=== PATIENT | female | born 1985 | race Caucasian/White ===

== ENCOUNTER → 2019-03-09 16:51 | Outpatient (CLI) | payer OTHER, SELFPAY ==
--- NOTE | 2019-03-16 15:50 | PM.PFT.1 ---
Pulmonary Function Test Referral & Results Date Patient Seen: 03/09/19 Requesting provider: Padma Domingo Results: The spirometry demonstrates an FVC of 3.49 L which is 102% of predicted. The FEV1 was measured at 1.90 L which is 65% of predicted. The FEV1/FVC ratio was 50 for which is 64% of predicted. Following the administration of bronchodilator there was a 64% improvement in FEV1 and a 250% improvement in FEF 25-75%. Lung volumes show an SVC of 3.77 L which is 113% of predicted. The diffusing capacity was measured at 29.89 which is 147% of predicted. The maximum voluntary ventilation was severely reduced Interpretation: This study demonstrates moderate obstructive lung disease with evidence of significant benefit following bronchodilator. There is also evidence of mild hyperinflation and an increase in diffusing capacity suggesting a diagnosis of asthma Given the severe reduction in maximum voluntary ventilation the question of neuromuscular disease is also present Clinical correlation suggested
== END ==
PROVIDERS: PCP Nurse Practitioner Family; Visit Provider Nurse Practitioner Family
DX: J45.909 Unspecified asthma, uncomplicated (principal)
CPT/HCPCS: 94060; 94729

== ENCOUNTER 2019-06-14 10:26 | Day surgery (SDC) | payer OTHER, SELFPAY ==
[2019-06-07 07:50] VITALS: BMI 24.0
[2019-06-14] VITALS (18 sets, daily range): BP systolic 79–137; BP diastolic 39–76; PULSE 63–90; RESP 14–20; TEMP 36.4–36.9; O2SAT 81–100; BMI 23.7
--- NOTE | 2019-06-14 | PATH_ITS ---
[facility] Accession Number: [id number] . 01 Material submitted: . PART A: peritoneum - PERITONEAL BIOPSY PART B: ovary - LEFT OVARIAN BIOPSY PART C: uterus - UTERUS . 02 Diagnosis: A. Peritoneal Biopsy: Portions of fibromuscular and fibroconnective tissue with no significant histomorphologic abnormality. There is no evidence of involvement by endometriosis. . B. Left Ovarian Biopsy: Portions of ovarian tissue with a benign corpus luteum cyst lining; negative for atypia or malignancy. . C. Uterus, Laparoscopic Supracervical Hysterectomy (Weight 32 grams): Weakly proliferative endometrium; negative for glandular hyperplasia, cytologic atypia, and malignancy. Myometrium with no significant histomorphologic abnormality; negative for atypia or malignancy. Uterine serosa with no significant histomorphologic abnormality. [facility] 06/18/2019 1606 Local . 02 Electronically signed: . Taisha Rawls MD, Pathologist NPI- [id number] . 01 Gross description: . A. Received in a formalin-filled container, labeled peritoneal biopsy, and consists of a 1.6 x 0.6 x 0.4 cm, pink-colunga, smooth to ragged, unoriented soft tissue. The presumed base is inked orange and sectioning reveals colunga, grossly unremarkable cut surfaces. Specimen is sectioned and entirely submitted in A1. B. Received in a formalin-filled container, labeled left ovarian biopsy, and consists of a 2.0 x 1.4 x 1.0 cm, pink-colunga, hemorrhagic, smooth to ragged, unoriented soft tissue grossly consistent with possible fragment of ovary which has a weight of less than 2.0 grams. The presumed serosa is inked blue and the specimen is sectioned to reveal pink-colunga grossly unremarkable cut surfaces. Specimen is sectioned and entirely submitted in B1-B2. C. Received in a formalin-filled container, labeled uterus, and consists of a 5.5 cm (cornu to cornu) by 4.3 cm (superior to inferior) by 4.0 cm (anterior to posterior) uterus devoid of bilateral adnexa and devoid of a cervix. The uterus has a weight of 32.0 grams and the serosa is colunga, smooth and there are multiple transmural defects present up to 4.0 cm, which is probable surgical artifact. Orientation is not possible and sectioning of the uterus reveals unremarkable cut surfaces. One of the serosal uterine defects grossly appears to be extending into the endomyometrium and into the uterine cavity. The uninvolved endometrium is pink-colunga, scant, up to less than 0.1 cm in thickness. The myometrium is colunga, trabeculated up to 2.3 cm in thickness. Bog Cutter sections are submitted as follows: C1 - aforementioned uterine serosal defect extending into endomyometrium; C2-C3 - uterus, endomyometrium (C3 including serosa); C4 - additional section of uterus including scant possible endometrium. ([id number]) /MRV 06/15/2019 [facility]5 Local . 02 Pathologist provided ICD-10: R10.2 . 02 CPT . 777609, [id number], [id number] Performed at: 01 [facility] [address] [id number] MD Yovany Mathew MD Phone: [phone] Performed at: 02 [facility] [address], [place] [id number] MD Asmita Lujan MD Phone: [phone]
[2019-06-14] MEDS: LACTATED RINGERS 1,000 ML 100 ML IV ×3 (11:43→18:20)
--- NOTE | 2019-06-14 13:13 | PM.PREOP ---
Pre-operative Note Interval Note History & Physical reviewed/Exam performed by Physician: Yes Changes to H&P: No
[2019-06-14] MEDS: CEFAZOLIN 2 GM/100 ML FROZ.PIGGY IV (14:12)
--- NOTE | 2019-06-14 14:36 | SUR.OPER ---
Lithotomy on padded OR bed, head on pillow, arms padded and secured at sides. Legs secured in padded yellow fins stirrups.
[2019-06-14] MEDS: BUPIVACAINE 0.5% W/ EPI (PF) VIAL 30 ML INJ (14:56)
[2019-06-14] MEDS: ROPIVACAINE 0.2% PF 2 MG/ML 10ML AMP 20 ML INJ (15:55)
--- NOTE | 2019-06-14 16:25 | PM.OP.1 ---
Operative Date/Time/Diagnoses Date of procedure: 06/14/19 Time of procedure: 16:25 Pre-op diagnosis: Dysmenorrhea, dyspareunia, menorrhagia Post-op diagnosis: same Procedure & Clinicians Procedure: Operative laparoscopy with biopsies pelvic peritoneum, biopsy left ovary, supracervical hysterectomy. Same procedure as scheduled: No (Scheduled as possible hysterectomy) Indications: Patient with 2 years of dysmenorrhea, dyspareunia, menorrhagia Surgeon: Helen Oleary Click Yes if Unassisted: Yes Anesthesia Type: General Operative Notes Findings: Possible peritoneal endometriosis in the posterior cul-de-sac. Left ovarian surface mass, endometrial scarring, pelvic varicosities, subserosal fibroid Closure Type: primary Specimen(s): other (Perineal biopsy, left ovarian biopsy, uterus above the level of the cervix.) Applied: catheter (Zepeda) Estimated Blood Loss (mL): 25 Blood products transfused: none Procedure in detail: Patient is brought to the operating room where she underwent general anesthesia and placed in [facility] stirps. She was prepped and draped in the usual sterile fashion. A check list was reviewed with the staff in the room prior to beginning of the case. Patient had pulsatile stockings in place and functional. 2 g of Ancef were in prior to beginning of the case.. A Zepeda catheter was placed. A single-tooth tenaculum was placed on the anterior lip of the cervix and the cervix dilated to a #6 Hegar dilator with some difficulty. The uterine manipulator was placed through the cervix into the uterus with the balloon inflated with 3 mL of air. The area of the umbilical incision and the 5 mm right and left lower quadrant incisions were injected with Marcaine. An incision was made with scalpel. Incision was carried down the fascial layer which was incised transversely and held with 0 Vicryl suture. The perineum was entered bluntly and the assign cannulas placed in the abdomen and the abdomen insufflated with CO2. There did not appear to be any damage is placement of the trocar. The right and left lower quadrant incisions were made with the scalpel and the trochars placed without damage to internal structures. Biopsy was taken of the area of possible endometriosis on the left broad ligament being careful to stay away from the left ureter. Biopsy was taken of a mass on the surface of the left ovary and cystic structure drained. At that time it was noted that with motion of the Zumi uterine manipulator that the Zumi perforated through the uterus wall. Due to the bleeding and size of the defect with the probability of endometriosis decision was made to proceed with a supracervical hysterectomy. The PK forceps were used to cauterize the utero-ovarian ligaments and the round ligaments on both sides. Sequential bites were taken down the broad ligaments. The uterine arteries were cauterized. An incision was made above the level bladder pushing the bladder away from the cervix. The CED loop was placed around the uterus and the uterus was amputated above the level of the bladder. Bleeding was controlled with the PK forceps. The PK forceps were used to cauterize in the endocervical canal. A supracervical incision was made and an 11 mm port placed. A 15 mm Endo Catch bag was placed in the abdomen. The uterus, tubes and ovaries were placed in the bag and brought up through the suprapubic port site. The Alexandr O was placed. The uterus was hand morselized. The abdomen was reinsufflated and adequate hemostasis was noted. The trochars were removed and the CO2 allowed escape from the abdomen. The fascia layer of the suprapubic site was repaired with 0 Vicryl suture. Skin was closed with 4-0 Monocryl suture at the suprapubic site and the other 3 sites. The patient went to recovery room in good condition. Counts of instruments and sponges were correct. Complications: other (Perforation of the uterus with Zumi uterine manipulator) Post-operative Condition: stable Disposition: Acute Care Plan for aftercare: Monitor overnight. Home in a.m. when stable.
[2019-06-14] MEDS: ALBUTEROL 2.5 MG/3 ML NEB (ADULT) INH (16:54)
[2019-06-14] MEDS: fentaNYL 100 MCG/2 ML INJ IV (16:59)
[2019-06-14] MEDS: LACTATED RINGERS 1,000 ML 42 ML IV (17:00)
--- NOTE | 2019-06-14 17:28 | SUR.PHASEI ---
Pt came in with airway and needing chin lift for 6 minutes, air way out,some wheezing noted, dr concepcion called, albuterol ordered and given wheezing resolved. medicated for pain and pt comfortable. report attempted, rn not available. awaiting call back.
[2019-06-14] MEDS: KETOROLAC 30 MG/ML VIAL IV (18:15)
[2019-06-14] MEDS: HYDROCODONE/ACET 5/325 TABLET 2 TAB PO ×2 (19:29→22:59)
[2019-06-14] MEDS: DOCUSATE 250 MG CAPSULE PO (20:42)
[2019-06-14] MEDS: ALBUTEROL HFA 60 PUFF/8 GM INH INH (22:00)
[2019-06-15] MEDS: KETOROLAC 30 MG/ML VIAL IV ×2 (02:33→08:31)
--- NOTE | 2019-06-15 02:48 | PC.NURSE ---
Addendum entered by Malissa Sanders R.N. 06/15/19 02:50: Now stating pain is 5/10 and requesting pain medication; medicated with Toradol. Original Note: 0100 Patient is alert and oriented. Breath sounds CTA with RA sat of 97%. HRR. Denies nausea. BT hypoactive and has not passed flatus as yet. Does have abdominal pain/tenderness from incisions and current severity is 5/10; had Vicodin at 2300 and states pain is tolerable. Indwelling catheter is patent; urine is pale, light yellow. Peripad without drainage. Assisted to turn onto side with pillow at back and between legs. Wearing bilateral calf SCD's. Reports 1 fall in past 3 months so fall risk score is high and bed alarm is activated.
[2019-06-15 04:09] VITALS: BP 99/54; PULSE 62; RESP 18; TEMP 37; O2SAT 98
[2019-06-15] MEDS: HYDROCODONE/ACET 5/325 TABLET 2 TAB PO ×3 (04:09→12:22)
[2019-06-15 05:37] LABS: Add Manual Diff / Slide Review NO; Basophils Absolute Auto 0 /uL (0-100); Basophils Percent Auto 0.1 % (0-2); Eosinophils Absolute Auto 0 /uL (0-450); Hematocrit 35.9 % (36-46); Hemoglobin 12.3 g/dL (12.0-16.0); Lymphocytes Absolute Auto 1200 /uL (1100-4500); Lymphocytes Percent Auto 12.5 % (25-40); Mean Corpuscular HGB Conc 34.2 % (30-36); Mean Corpuscular Hemoglobin 29.4 PG (26-34); Monocytes Absolute Auto 500 /uL (0-900); Monocytes Percent Auto 5.3 % (3-14); Neutrophils Absolute Auto 8100 /uL (1500-7000); Neutrophils Percent Auto 82.1 % (50-75); Platelet Count 201 X10^3/uL (150-400); Red Blood Cell Count 4.17 X10^6/uL (4.0-5.2); Red Cell Distribution Width 13.3 % (11.6-14.8); White Blood Cell Count 9.9 X10^3/uL (4.5-11.0)
--- NOTE | 2019-06-15 07:32 | P.DS_ITS ---
History of Present Illness History of Present Illness Date Patient Seen: 06/15/19 Time Patient Seen: 07:32 Chief complaint: [id number] Narrative: Patient underwent diagnostic laparoscopy and was converted a laparoscopic supracervical hysterectomy. She is not having any nausea. Her pain is tolerable. No vaginal bleeding. Discharge Providers Provider Discharge Date: 06/15/19 Primary care physician: ANTHONY Brooks Consults: 06/14/19 18:03 Consult to Dietitian, Adult Routine Comment: Reason For Exam: recent change in appetite with wt loss Discharge provider: Helen Oleary MD Summary Hospital Course Discharge Diagnosis: Dysmenorrhea, dyspareunia, menorrhagia. Pelvic varicosities, possible endometriosis, uterine fibroids Hospital Course: Patient underwent diagnostic laparoscopy and was converted a laparoscopic supracervical hysterectomy. She is not having any nausea. Her pain is tolerable. No vaginal bleeding. Patient's vital signs remained stable. Her blood count is stable. Status at Discharge Cognitive/behavioral status at discharge: oriented Functional status at discharge: independent ambulation Overall status at discharge: patient is progressing back to baseline Time Spent with Patient Time spent: Less than 30 minutes Exam Vital Signs (past 8 hours): - 06/14/19 23:55 06/15/19 04:09 Temperature 98.3 F 98.6 F Pulse Rate 63 62 Respiratory Rate 18 18 Blood Pressure 103/63 99/54 L Pulse Oximetry 97 98 Oxygen Delivery Method Room Air Oxygen Flow Rate 0 Narrative Exam Narrative: Abdomen is soft with minimal tenderness. Dressings are dry. No vaginal bleeding. Extremities without edema and nontender. Objective Labs Result Diagrams: 06/15/19 05:15 Labs: Laboratory Results - last 24 hr 06/15/19 05:15 WBC 9.9 RBC 4.17 Hgb 12.3 Hct 35.9 L MCV 86.0 MCH 29.4 MCHC 34.2 RDW 13.3 Plt Count 201 Neut % (Auto) 82.1 H Lymph % (Auto) 12.5 L [place] % (Auto) 5.3 Eos % (Auto) 0.0 L Baso % (Auto) 0.1 Neut # (Auto) 8100 H Lymph # (Auto) 1200 [place] # (Auto) 500 Eos # (Auto) 0 Baso # (Auto) 0 Discharge Plan Discharge Plan Patient Disposition: Home Discharge Med Rec/Prescriptions Prescriptions: Continued oxycodone-acetaminophen 5-325 mg tablet 2 tab PO Q4-6H PRN (Reason: pain) Qty: 30 RF: 0 albuterol sulfate [ProAir HFA] 90 mcg/actuation HFA aerosol inhaler 2 puff INHALATION Q4-6H PRN (Reason: Shortness Of Breath) RF: 0 Flovent HFA 110 mcg/actuation HFA aerosol inhaler 2 puff INHALATION BID RF: 0 loratadine [Claritin] 10 mg tablet 10 mg PO DAILY RF: 0 montelukast [Singulair] 10 mg tablet 10 mg PO QPM Qty: 60 RF: 0 Follow up/Referrals: Helen Oleary MD [Physician] - 2 Weeks Discharge Orders: Discharge (Order); Ordered 06/15/19 Ordered By: Helen Oleary Provider Discharge Instructions Diet: Regular Activity: No heavy activity for 1 week Skin/Wound/Dressing Care Report to your healthcare provider any signs of infection, such as:: chills, fever, increased pain and unusual redness Dressing: Leave in is on for 24 hours then remove can get Steri-Strips wet just pat dry Visit Report/Discharge Packet Instructions: DI for Laparoscopy Stand Alone Forms: Surgery Discharge Discharge Data Primary Care Provider: Padma Domingo Attending Provider: Hleen Oleary Quality VTE Deep Vein Thrombosis/Pulmonary Embolism Present on Admission: No
[2019-06-15] MEDS: ALBUTEROL HFA 60 PUFF/8 GM INH INH (08:30)
[2019-06-15] MEDS: SODIUM CHLORIDE 0.9% FLUSH 10 ML IV (08:31)
[2019-06-15] MEDS: DOCUSATE 250 MG CAPSULE PO (08:34)
--- NOTE | 2019-06-15 08:34 | CM.SWNOTE ---
Initial/discharge assessment complete. Found patient sitting up in chair eating breakfast. A&O x 4 and in good spirits. She declined that she had barriers to safe discharge or any needs at home that I could assist her with at this time. Left CM name and number on white board in room since she didn't anticipate leaving for home until this afternoon. She has two active toddlers and she was hoping they would be worn out by this afternoon so less likely to cause additional discomfort with their roughness.
[2019-06-15 10:00] VITALS: BP 101/61; PULSE 60; RESP 16; TEMP 36.9; O2SAT 97
--- NOTE | 2019-06-15 10:08 | PC.NURSE ---
Addendum entered by Beto Lozano R.N. 06/15/19 13:28: PATIENT AMBULATED IN [place] FOR A SHORT DISTANCE. TOLERATED WELL. SPOUSE PRESENT FOR DISCHARGE TEACHING AND PAPERWORK. PATIENT STATES SHE HAS ALREADY FILLED HER OXYCODONE SCRIPT PRE-OP. TEACHING PROVIDED ABOUT PREVENTING CONSTIPATION. PATIENT CONFIRMS UNDERSTANDING OF ALL S/SX'S WARRANTING CALL TO SURGEON'S OFFICE. SHE STATES SHE ALREADY HAS A F/U APPT MADE FOR THE DAY AFTER THANKSGIVING. Original Note: : BHUPENDRA DC'D AT 0815. VOIDED 300CC'S AT 0940. BLADDER SCANNED AT 1005 W/ PVR 85CC'S. ACTIVITY: PATIENT SAT UP IN RECLINER FOR BREAKFAST. TRANSIENT LIGHTHEADEDNESS. 1P SBA UP TO BR TO VOID, TOLERATED WELL. PREFERS TO NAP AT THIS TIME. AGREES TO AMBULATE IN HALLS PRIOR TO LUNCH, AND THEN SHE EXPECTS HER TO ARRIVE TO TAKE HER HOME.
[2019-06-15 11:23] VITALS: BMI 23.7
--- NOTE | 2019-06-15 11:29 | DIET.PN ---
Dietary Progress Note Assessment: 33y F admitted for recovery s/p lap hysterectomy referred to nutrition for change in appetite and weight loss. Pt reports lowered appetite and wt loss associated c px r/t endometriosis, hoping this resolves s/p procedure. Pt tends towards clean eating c reduced processed foods, red meat and dairy. Has two toddlers and supportive at home. HT: 154.9cm WT: 56.9kg BMI: 23.7 MNA:10 at risk Dionicio:21 Nutrition Diagnosis: Increased nutrient needs (PRO, zinc, Vits A and C) r/t healing wounds aeb pt is s/p lap hysterectomy, prefers no red meat or dairy. Interventions: Discussed increased nutrient needs for healing ensuring PRO c each meal, making large batch of soup containing turkey/chicken/beans, carrots/squash/sweet potato, tomato/hawkins pepper and eating for one meal per day for next 2w. Diet Order: General EER: 1800kcal, 70g PRO (1.2g/kg healing wounds), 1.7L fluids Monitoring/Evaluations: pt is d/c this afternoon
[2019-06-15 12:00] VITALS: BP 99/59; PULSE 65; RESP 16; TEMP 36.8; O2SAT 98
== END 2019-06-15 13:41 | disposition home or self-care (01) ==
LOC: OR 16:35 → AC 16:35
PROVIDERS: PCP Nurse Practitioner Family; Visit Provider Specialist
PROC: (CPT 49320; principal; 2019-06-14 13:45)
DX: D25.2 Subserosal leiomyoma of uterus (principal); N83.12 Corpus luteum cyst of left ovary
CPT/HCPCS: 58541; 36415; 85025; 94640; J0690; J1100; J1885; J2405; J2704; J2795; J3010; J7613

== ENCOUNTER 2019-06-27 10:19 | Emergency (ER) | payer OTHER, SELFPAY ==
[2019-06-14 17:36] VITALS: BMI 23.7
[2019-06-27 10:20] VITALS: BP 104/67; PULSE 60; RESP 18; TEMP 36.9; O2SAT 96
--- NOTE | 2019-06-27 10:40 | DI.RAD.S_ITS ---
PROCEDURE: XR CHEST 2V INDICATIONS: cough fever TECHNIQUE: 2 views of the chest were acquired. COMPARISON: [facility], CT, CT ABDOMEN PELVIS W CON, 06/27/2019, 11:03. FINDINGS: Surgical changes and devices: None. Lungs and pleura: Minimal appearance of streaky opacity is present within the right base. No pleural effusions or pneumothorax. Mediastinum: Mediastinal contours are normal. Heart size is normal. Bones and chest wall: No suspicious bony abnormalities. Soft tissues appear unremarkable. IMPRESSION: Minimal streaky right basilar opacity. This could represent atelectasis versus developing pneumonia. Dictated by: Kelli Mcdonald M.D. on 06/27/2019 at 11:48 Approved by: Kelli Mcdonald M.D. on 06/27/2019 at 12:08
--- NOTE | 2019-06-27 10:40 | DI.CT.S_ITS ---
PROCEDURE: CT ABDOMEN PELVIS W CON INDICATIONS: pain s/p hysterectomy TECHNIQUE: After the administration of intravenous contrast, 5 mm thick sections acquired from the diaphragm to the symphysis. 5 mm coronal and sagittal reformats were acquired. For radiation dose reduction, the following was used: automated exposure control, adjustment of mA and/or kV according to patient size. COMPARISON: None. FINDINGS: Image quality: Excellent. ABDOMEN: Lung bases: Small focal alveolar opacity in the posterior right costophrenic sulcus. No effusions. Heart size is normal. Solid organs: Liver is normal in size and enhancement. Gallbladder is normal. Biliary system is non dilated. Pancreas enhances normally. Spleen is normal in size and enhancement. No adrenal nodules. Kidneys demonstrate normal size and enhancement, without hydronephrosis. Peritoneum and bowel: Bowel loops demonstrate normal wall thickness and caliber. No free fluid or air. Nodes and vessels: No retroperitoneal or mesenteric adenopathy by size criteria. Aorta and inferior vena cava are normal in size. Miscellaneous: No ventral hernias. PELVIS: Genitourinary: The uterus is surgically absent. There is probably a hyperenhancing residual cervix. There is a mild amount of amorphous surrounding low density, probably edema and a small amount of fluid layers posteriorly in the pelvis. The vaginal canal is decompressed except for small amount of air at the apex. No discrete drainable fluid collection and no extraluminal gas. The right ovary contains a small dominant follicle. Left ovarian tissue is normal. Miscellaneous: No inguinal hernias or adenopathy. A small rounded/tubular focus of unencapsulated, nonenhancing subcutaneous fluid subjacent to a low midline pelvic incision is present. The anterior abdominal wall appears intact. Bones: No suspicious bony lesions. No vertebral body compression fractures. IMPRESSION: 1. Edema and small amount of unencapsulated fluid adjacent to the residual cervix post hysterectomy. No discrete drainable abscess. 2. Small subcutaneous seroma/hematoma underlying the surgical skin incision. No adjacent changes to suspect abscess. Dictated by: Laura Rousseau M.D. on 06/27/2019 at 11:33 Approved by: Laura Rousseau M.D. on 06/27/2019 at 11:41
--- NOTE | 2019-06-27 10:49 | ED_ITS ---
HPI - SOB/Dyspnea General Chief Complaint: Shortness of Breath/Dyspnea Stated Complaint: surgery on ,bloody discharge,cough up blood Time Seen by Provider: 06/27/19 10:32 Source: patient Mode of arrival: Ambulatory Limitations: no limitations History of Present Illness HPI Narrative: The patient is a 33-year-old female with history of at presents with variety of complaints. She had an outpatient hysterectomy on 06/14/2019. She says shortly after that her family all got gastroenteritis she had vomiting and diarrhea. She says that has subsided she now has a cough some occasional hemoptysis. She has some shortness of breath but not now. She also says that she has some vaginal bloody mucousy discharge, she does not have significant vaginal bleeding she does have some mild abdominal pain as well she is worried that her his sutures something may have happened. She has no redness or pus around her incision sites. MD Complaint: shortness of breath Onset (ago): day(s) Related Data Home Medications Medication Instructions Recorded Confirmed fluticasone propionate 110 2 puff INHALATION BID 02/22/19 06/14/19 mcg/actuation HFA aerosol inhaler loratadine 10 mg tablet 10 mg PO DAILY 02/22/19 06/14/19 Previous Rx's Medication Instructions Recorded montelukast 10 mg tablet 10 mg PO QPM #60 tab 02/22/19 oxycodone-acetaminophen 5 mg-325 1 tab PO Q4-6H PRN #10 tab 06/18/19 mg tablet albuterol sulfate 90 mcg/actuation 2 puff INHALATION Q4-6H PRN #8 gram 06/22/19 aerosol inhaler doxycycline hyclate 100 mg PO BID #14 cap 06/27/19 ondansetron HCl [Zofran] 4 mg PO Q8H PRN #10 tab 06/27/19 Allergies Allergy/AdvReac Type Severity Reaction Status Date / Time No Known Drug Allergies Allergy Verified 06/11/19 09:01 Review of Systems Review of Systems ROS Unobtainable: All systems reviewed & are unremarkable except as noted in HPI and below Constitutional Constitutional: Denies chills, Denies fever(s), Denies lethargy and Denies weakness Eyes Eyes: Denies change in vision, Denies eye discharge, Denies irritation and Denies loss of vision Cardiovascular Cardiovascular: Denies chest pain, Denies irregular heart rhythm, Denies lightheadedness, Denies palpitations, Reports dyspnea, Reports dyspnea on exertion and Denies orthopnea Respiratory Respiratory: Reports cough, Reports hemoptysis, Denies excessive phlegm production, Denies pain on inspiration, Reports dyspnea and Reports dyspnea on exertion Gastrointestinal Gastrointestinal: Reports as per HPI and Denies vomiting Musculoskeletal Musculoskeletal: Denies back pain, Denies muscle weakness, Denies numbness and Denies tingling Integumentary/Breasts Skin/Breast: Denies pruritus, Denies erythema, Denies rash and Denies wounds Neurologic Neurologic: Denies loss of vision, Denies numbness, Denies tingling and Denies weakness Endocrine Endocrine: Denies palpitations Patient History Medical History Acne (Chronic ~1989) ADHD (Chronic ~1996) Allergies (Chronic ~2010) Anxiety (Chronic ~2012) Asthma (Chronic ~2016) Chronic back pain (Chronic ~2016) Depression (Chronic ~1997) Fibromyalgia (Chronic ~2017) Painful menstrual periods (Chronic ~2016) complication (Acute ~11/2016) Vision disorder (Chronic) Surgical History Anesthesia (Resolved) H/O: hysterectomy (Acute 06/14/19) History of dilatation and curettage (Resolved ~2016) History of surgery (Resolved ~2016) Family History Mother Diabetes mellitus Hypertension Hyperlipidemia Stroke Arthritis Social History household members: spouse and children Smoking Status: Former smoker second hand exposure: No alcohol intake: never substance use type: does not use alcohol intake frequency: 0-2 drinks per day Substance Use Type: marijuana Exam Initial Vital Signs Initial Vital Signs: Vital Signs Temperature 98.4 F 06/27/19 10:20 Pulse Rate 60 06/27/19 10:20 Respiratory Rate 18 06/27/19 10:20 Blood Pressure 104/67 06/27/19 10:20 Pulse Oximetry 96 06/27/19 10:20 GENERAL: Well-appearing, well-nourished and in no acute distress. HEENT: Head atraumatic,EOMI, pupils reactive, face symmetric CARDIOVASCULAR: Regular rate and rhythm without murmurs, rubs or gallops. RESPIRATORY: Breath sounds equal bilaterally, no wheezes rales or rhonchi. Speaks in full sentences no difficulty ABDOMEN: Soft, minimal tenderness incision sites clean and dry Steri-Strips in place no erythema no significant discharge : No CVA tenderness EXTREMITIES: Normal range of motion, no clubbing or edema. Neurovascularly inta ct NEUROLOGICAL: Alert and oriented x4.Normal gait and speech. SKIN: Warm, dry, no laceration, no petechiae, no rashes or lesions. Scores PERC Score Age greater than or equal to 50 years: No Heart rate greater than or equal to 100 bpm: No Room Air O2 Sat less than 95%: No Unilateral leg swelling: No Recent trauma or surgery: No Hemoptysis: Yes Prior PE or DVT: No Hormone Use: No Total PERC Score: 1 Wells' Criteria for PE Clinical signs and symptoms of DVT: No PE is #1 Dx or equally likely: No Heart rate > 100: No Immobilization at least 3 days or surg in previous 4 weeks: No History of PE or DVT: No Hemoptysis: No Malignancy w/Treatment within 6 months or palliative: No Wells' PE Score total: 0 Course Orders Ordered: ED Orders 06/27/19 10:40 CT abdomen pelvis w con Stat XR chest 2V Stat 06/27/19 10:57 Complete Blood Count AUTO DIFF Stat Comprehensive Metabolic Panel Stat Lipase Stat 06/27/19 11:25 Urine Microscopic Stat Discontinued Medications Albuterol/Ipratropium (Duoneb) 3 ml INH NOW ONE Stop: 06/27/19 12:23 Last Admin: 06/27/19 13:06 Dose: 3 ml Documented by: LALO Sodium Chloride (Normal Saline 0.9%) 1,000 mls @ 1,000 mls/hr IV CONT BELÉN Last Infusion: 06/27/19 12:43 Dose: 0 mls/hr Documented by: Admin: 06/27/19 11:05 Dose: 1,000 mls/hr Documented by: MICAELA Ketorolac Tromethamine (Toradol) 30 mg IV NOW ONE Stop: 06/27/19 10:42 Last Admin: 06/27/19 11:06 Dose: 30 mg Documented by: MICAELA Ondansetron HCl (Zofran) 4 mg IV NOW ONE Stop: 06/27/19 11:17 Last Admin: 06/27/19 11:19 Dose: 4 mg Documented by: MICAELA Vital Signs Vital signs: Vital Signs - 8 hr 06/27/19 13:02 06/27/19 13:37 Pulse Rate 80 78 Respiratory Rate 20 18 Blood Pressure 108/69 Pulse Oximetry 98 MDM - SOB/Dyspnea Lab Data Attestation: I reviewed the patient's lab results. Result diagrams: 06/27/19 10:57 06/27/19 10:57 Labs: Lab Results 06/27/19 06/27/19 06/27/19 Range/Units 10:57 10:57 11:25 WBC 4.6 (4.5-11.0) X10^3/uL RBC 4.43 (4.0-5.2) X10^6/uL Hgb 13.2 (12.0-16.0) g/dL Hct 37.8 (36-46) % MCV 85.3 (80-100) fL MCH 29.8 (26-34) PG MCHC 34.9 (30-36) % RDW 13.6 (11.6-14.8) % Plt Count 238 (150-400) X10^3/uL Neut % (Auto) 51.0 (50-75) % Lymph % (Auto) 39.2 (25-40) % Carson % (Auto) 7.0 (3-14) % Eos % (Auto) 2.3 (2-4) % Baso % (Auto) 0.5 (0-2) % Neut # (Auto) 2400 (4622-8408) /uL Lymph # (Auto) 1800 (4197-8067) /uL Carson # (Auto) 300 (0-900) /uL Eos # (Auto) 100 (0-450) /uL Baso # (Auto) 0 (0-100) /uL Sodium 139 (137-145) mmol/L Potassium 3.4 (3.4-5.1) mmol/L Chloride 104 (98-107) mmol/L Carbon Dioxide 27 (22-32) mmol/L BUN 3 L (7-17) mg/dL Creatinine 0.40 L (0.52-1.04) mg/dL Estimated GFR > 60.0 (>60) mL/min BUN/Creatinine Ratio 7.5 (6-22) Glucose 110 H (70-100) mg/dL Calcium 9.5 (8.4-10.2) mg/dL Total Bilirubin 0.8 (0.2-1.3) mg/dL AST 28 (14-36) IU/L ALT 24 (<35) IU/L Alkaline Phosphatase 56 (38-126) U/L Total Protein 7.0 (6.3-8.2) g/dL Albumin 4.4 (3.5-5.0) g/dL Globulin 2.6 (1.7-4.1) g/dL Albumin/Globulin Ratio 1.7 (1.0-2.8) Lipase 173 (23-300) U/L Urine RBC 1-5/hpf (0-5/HPF) Urine WBC None seen (0-5/HPF) Ur Squamous Epith Cells 5-10 /hpf H (0-5/HPF) Urine Bacteria None seen (None) Ur Culture Indicated? Cult not indicated Urine Dip Bedside Urine Glucose Negative Bedside Urine Bilirubin - Negative Bedside Urine Ketone - Negative Urine Specific [place] 1.005 Bedside Urine Occult Blood + Bedside Urine pH 6.5 Bedside Urine Protein - Negative Bedside Urine Urobilinogen +/- 1mg Bedside Urine Nitrite - Negative Bedside Urine Leukocytes - Negative Esterase Imaging Data CT scan - abdomen: Radiologist's impression: PROCEDURE: CT ABDOMEN PELVIS W CON INDICATIONS: pain s/p hysterectomy TECHNIQUE: After the administration of intravenous contrast, 5 mm thick sections acquired from the diaphragm to the symphysis. 5 mm coronal and sagittal reformats were acquired. For radiation dose reduction, the following was used: automated exposure control, adjustment of mA and/or kV according to patient size. COMPARISON: None. FINDINGS: Image quality: Excellent. ABDOMEN: Lung bases: Small focal alveolar opacity in the posterior right costophrenic sulcus. No effusions. Heart size is normal. Solid organs: Liver is normal in size and enhancement. Gallbladder is normal. Biliary system is non dilated. Pancreas enhances normally. Spleen is normal in size and enhancement. No adrenal nodules. Kidneys demonstrate normal size and e nhancement, without hydronephrosis. Peritoneum and bowel: Bowel loops demonstrate normal wall thickness and caliber. No free fluid or air. Nodes and vessels: No retroperitoneal or mesenteric adenopathy by size criteria. Aorta and inferior vena cava are normal in size. Miscellaneous: No ventral hernias. PELVIS: Genitourinary: The uterus is surgically absent. There is probably a hyperenhancing residual cervix. There is a mild amount of amorphous surrounding low density, probably edema and a small amount of fluid layers posteriorly in the pelvis. The vaginal canal is decompressed except for small amount of air at the apex. No discrete drainable fluid collection and no extraluminal gas. The right ovary contains a small dominant follicle. Left ovarian tissue is normal. Miscellaneous: No inguinal hernias or adenopathy. A small rounded/tubular focus of unencapsulated, nonenhancing subcutaneous fluid subjacent to a low midline pelvic incision is present. The anterior abdominal wall appears intact. Bones: No suspicious bony lesions. No vertebral body compression fractures. IMPRESSION: 1. Edema and small amount of unencapsulated fluid adjacent to the residual cervix post hysterectomy. No discrete drainable abscess. 2. Small subcutaneous seroma/hematoma underlying the surgical skin incision. No adjacent changes to suspect abscess. Dictated by: Laura Rousseau M.D. on 06/27/2019 at 11:33 Approved by: Laura Rousseau M.D. on 06/27/2019 at 11:41 Chest x-ray: Radiologist's impression: PROCEDURE: XR CHEST 2V INDICATIONS: cough fever TECHNIQUE: 2 views of the chest were acquired. COMPARISON: [facility], CT, CT ABDOMEN PELVIS W [facility], 06/27/2019, 11:03. FINDINGS: Surgical changes and devices: None. Lungs and pleura: Minimal appearance of streaky opacity is present within the right base. No pleural effusions or pneumothorax. Mediastinum: Mediastinal contours are normal. Heart size is normal. Bones and chest wall: No suspicious bony abnormalities. Soft tissues appear unremarkable. IMPRESSION: Minimal streaky right basilar opacity. This could represent atelectasis versus developing pneumonia. Dictated by: Kelli Mcdonald M.D. on 06/27/2019 at 11:48 MDM Narrative Medical decision making narrative: The patient did improve significantly after DuoNeb. She has some mild possibly early developing pneumonia on her x-ray. At this time she is not hypoxic or tachycardic. She had hysterectomy but only stayed 1 night was discharged the following day. This time I think low risk for PE Discharge Plan Departure Patient Disposition: Home Clinical Impression: Atypical pneumonia, Gastroenteritis Discharge Date/Time: 06/27/19 13:38 Instructions: DI for Bacterial Gastroenteritis -- Adult, DI for Atypical Pneumonia Activity Restrictions/Additional Instructions: *You have been diagnosed with atypical pneumonia, gastroenteritis *What to do: rest, increase activity as tolerated *Continue to take medications as directed--> SENT TO [facility] Albuterol 1-2 puffs every 4 hours if needed for coughing or shortness Doxycycline 100 mg twice a day for 7 days Zofran 4 mg every 8 hours if needed for nausea or vomiting *Follow up with your primary care provider in 2-3 days *Return to ER if you should have increasing shortness of breath is shortness of breath with exertion persistent vomiting increased abdominal or any new, worsening or concerning symptoms Prescriptions: New doxycycline hyclate 100 mg capsule 100 mg PO BID Qty: 14 RF: 0 ondansetron HCl [Zofran] 4 mg tablet 4 mg PO Q8H PRN (Reason: nausea and vomiting) Qty: 10 RF: 0 No Action oxycodone-acetaminophen 5-325 mg tablet 1 tab PO Q4-6H PRN (Reason: pain) Qty: 10 RF: 0 albuterol sulfate [ProAir HFA] 90 mcg/actuation HFA aerosol inhaler 2 puff INHALATION Q4-6H PRN (Reason: Shortness Of Breath) Qty: 8 RF: 3 Flovent HFA 110 mcg/actuation HFA aerosol inhaler 2 puff INHALATION BID RF: 0 loratadine [Claritin] 10 mg tablet 10 mg PO DAILY RF: 0 montelukast [Singulair] 10 mg tablet 10 mg PO QPM Qty: 60 RF: 0 Referrals: Padma Domingo ARNP [Primary Care Provider] - Helen Oleary MD [Physician] -
[2019-06-27] MEDS: SODIUM CHLORIDE 0.9% 1,000 ML 1000 ML IV (11:05)
[2019-06-27 11:06] LABS: Add Manual Diff / Slide Review NO; Basophils Absolute Auto 0 /uL (0-100); Basophils Percent Auto 0.5 % (0-2); Eosinophils Absolute Auto 100 /uL (0-450); Eosinophils Percent Auto 2.3 % (2-4); Hematocrit 37.8 % (36-46); Hemoglobin 13.2 g/dL (12.0-16.0); Lymphocytes Absolute Auto 1800 /uL (1100-4500); Lymphocytes Percent Auto 39.2 % (25-40); Mean Corpuscular HGB Conc 34.9 % (30-36); Mean Corpuscular Hemoglobin 29.8 PG (26-34); Mean Corpuscular Volume 85.3 fL (80-100); Monocytes Absolute Auto 300 /uL (0-900); Neutrophils Absolute Auto 2400 /uL (1500-7000); Platelet Count 238 X10^3/uL (150-400); Red Blood Cell Count 4.43 X10^6/uL (4.0-5.2); Red Cell Distribution Width 13.6 % (11.6-14.8); White Blood Cell Count 4.6 X10^3/uL (4.5-11.0)
[2019-06-27] MEDS: KETOROLAC 60 MG/2 ML VIAL 30 MG IV (11:06)
[2019-06-27 11:15] LABS: Alanine Aminotransferase 24 IU/L (<35); Albumin 4.4 g/dL (3.5-5.0); Albumin Globulin Ratio 1.7 (1.0-2.8); Alkaline Phosphatase 56 U/L (38-126); Aspartate Aminotransferase 28 IU/L (14-36); BUN Creatinine Ratio 7.5 (6-22); Bilirubin Total 0.8 mg/dL (0.2-1.3); Blood Urea Nitrogen 3 mg/dL (7-17); Calcium 9.5 mg/dL (8.4-10.2); Carbon Dioxide 27 mmol/L (22-32); Chloride 104 mmol/L (98-107); Estimated Glomerular Filt Rate > 60.0 mL/min (>60); Globulin 2.6 g/dL (1.7-4.1); Glucose 110 mg/dL (70-100); HEMOLYSIS < 15 (0-50); Lipase 173 U/L (23-300); Potassium 3.4 mmol/L (3.4-5.1); Sodium 139 mmol/L (137-145)
[2019-06-27] MEDS: ONDANSETRON 4 MG/2 ML INJ IV (11:19)
[2019-06-27 11:37] LABS: Bacteria Urine None Seen; WBC Urine None Seen (0-5/HPF)
[2019-06-27 11:55] LABS: Culture Indicated Urine Cult Not Indicated; RBC Urine 1-5/HPF (0-5/HPF); Squamous Epithelial Cell Urine 5-10 /HPF (0-5/HPF)
[2019-06-27 13:02] VITALS: PULSE 80; RESP 20
[2019-06-27] MEDS: ALBUTEROL/IPRATROPIUM 3 ML AMPUL INH (13:06)
--- NOTE | 2019-06-27 13:17 | RT ---
Pred peak flow: 475 Peak flow before tx: 240 After tx 340. MDI teaching performed. Informed Dr Zhao.
[2019-06-27 13:37] VITALS: BP 108/69; PULSE 78; RESP 18; O2SAT 98
== END 2019-06-27 13:38 | disposition home or self-care (01) ==
PROVIDERS: Emergency Provider Emergency Medicine; PCP Nurse Practitioner Family
DX: J18.9 Pneumonia, unspecified organism (principal); K52.9 Noninfective gastroenteritis and colitis, unspecified; R10.2 Pelvic and perineal pain; Z90.710 Acquired absence of both cervix and uterus
CPT/HCPCS: 36415; 71046; 74177; 80053; 81003; 81015; 83690; 85025; 94150; 94640; 96361; 96374; 96375; 99283; 99284; J1885; J2405; Q9967

== ENCOUNTER → 2019-10-19 10:27 | Outpatient (CLI) | payer OTHER, SELFPAY ==
[2019-07-31 13:19] VITALS: BMI 23.7
[2019-10-19 12:32] LABS: Influenza A - CEPHEID Flu A NEGATIVE (NEGATIVE); Influenza B - CEPHEID Flu B NEGATIVE (NEGATIVE)
[2019-10-22 06:03] LABS: COVID19 Sendout Not Detected (Not Detected)
== END ==
PROVIDERS: PCP Nurse Practitioner Family; Visit Provider Registered Nurse
DX: R05 Cough (principal)
CPT/HCPCS: 87502

== ENCOUNTER 2019-12-25 21:19 | Emergency (ER) | payer OTHER, SELFPAY ==
[2019-07-31 13:19] VITALS: BMI 23.7
[2019-12-25 21:30] VITALS: BP 123/59; PULSE 77; RESP 18; TEMP 36.8; O2SAT 99
--- NOTE | 2019-12-25 22:33 | ED_ITS ---
HPI - General Adult General Chief complaint: Extremity Injury, Upper Stated complaint: Slammed L elbow into door handle, pain increasing Time Seen by Provider: 12/25/19 22:03 Source: patient Mode of arrival: Ambulatory Limitations: no limitations History of Present Illness HPI narrative: 34-year-old female here for evaluation of a left elbow injury now having swelling and tingling to the fingers of her left hand. She states that approximately 5 days ago she had the outside of her left elbow on a door handle. Since that time she has had some swelling around her elbow and then over the past day she has noticed swelling in the fingers of her left hand especially when her arm is hanging down. She stated that her noticed swelling and told her to come to the emergency department. She has also noticed some tingling of the fingers of her left hand as well. Has not tried anything for her symptoms prior to arrival. Related Data Previous Rx's Medication Instructions Recorded fluticasone propionate 230 2 inhalation INHALATION BID #12 10/19/19 mcg-salmeterol 21 mcg/actuation gram HFA inhaler prednisone 10 mg tablet See Rx Instructions PO DAILY #18 10/19/19 tab albuterol sulfate 90 mcg/actuation 2 puff INHALATION Q4-6H PRN #8 gram 12/12/19 aerosol inhaler Allergies Allergy/AdvReac Type Severity Reaction Status Date / Time No Known Drug Allergies Allergy Verified 10/19/19 09:55 Review of Systems Constitutional Constitutional: Denies fever(s) Musculoskeletal Comments: Left elbow swelling, tingling to the left hand, swelling to the left hand Integumentary/Breasts Comments: Swelling and bruising around the left elbow Neurologic Comments: Tingling to the left hand Hematologic/Lymphatic Hematologic/Lymphatic: Denies easy bleeding and Denies easy bruising Patient History Medical History Acne (Chronic ~1989) ADHD (Chronic ~1996) Allergies (Chronic ~2010) Anxiety (Chronic ~2012) Asthma (Chronic ~2016) Bipolar disorder (manic depression) (Acute) Chronic back pain (Chronic ~2016) Depression (Chronic ~1997) Fibromyalgia (Chronic ~2017) Painful menstrual periods (Chronic ~2016) complication (Acute ~11/2016) Vision disorder (Chronic) Surgical History (Updated 07/06/19 @ 17:10 by Helen Oleary MD) Anesthesia (Resolved) H/O: hysterectomy (Acute 06/14/19) History of dilatation and curettage (Resolved ~2016) History of surgery (Resolved ~2016) S/P laparoscopic supracervical hysterectomy (Acute) Social History household members: spouse and children Smoking Status: Former smoker second hand exposure: No alcohol intake: never substance use type: does not use Smoking Status: Former smoker alcohol intake frequency: 0-2 drinks per day Substance Use Type: marijuana Exam Initial Vital Signs Initial Vital Signs: Vital Signs Temperature 98.2 F 12/25/19 21:30 Pulse Rate 77 12/25/19 21:30 Respiratory Rate 18 12/25/19 21:30 Blood Pressure 123/59 L 12/25/19 21:30 Pulse Oximetry 99 12/25/19 21:30 Const General: cooperative, healthy appearing, comfortable, well developed and well groomed Limitations: mental status not altered Cardio Pulses: radial pulses present on the left Skin Other: Patient with a small amount of bruising and swelling around the lateral aspect of the left elbow Neuro Sensory Exam: no sensory deficits noted Extrem Other: Patient able to flex and extend the left elbow without problems. Does have discomfort with supination. Full range of motion of left wrist. Psych Appearance: grossly normal and well kempt Course Orders Ordered: ED Orders 12/25/19 22:39 XR elbow LT min 3V Stat Vital Signs Vital signs: Vital Signs - 8 hr 12/25/19 21:30 Temperature 98.2 F Pulse Rate 77 Respiratory Rate 18 Blood Pressure 123/59 L Pulse Oximetry 99 Medical Decision Making Imaging Data Extremity x-ray #1: Attestation: I personally reviewed and interpreted this imaging study as follows: My Impression: No fractures, no dislocation left elbow MDM Narrative Medical decision making narrative: I suspect patient's symptoms are related to the swelling around the ulnar nerve which is very close to the area of the swelling where she had her left elbow. No fractures on the x-ray. Low suspicion for infection. Low suspicion for a left hand injury. Feel we can hold on radiologic studies the left hand. Discussed use of anti-inflammatories and ice with the patient. She was given return precautions. She expressed understanding and agreement. Discharge Plan Departure Patient Disposition: Home Clinical Impression: Arm paresthesia, left Injury of elbow, left Qualifiers: Encounter type: initial encounter Qualified Code(s): S59.902A - Unspecified injury of left elbow, initial encounter Discharge Date/Time: 12/25/19 23:22 Instructions: How To Perform RICE (Rest, Ice, Compress, Elevate) Activity Restrictions/Additional Instructions: Recommend that you use ice over the left elbow. Also recommend you take anti- inflammatories. You have no restrictions on your activities but I do recommend that you limit the flexion extension of your elbow for the next couple days. Contact your primary provider for follow-up. Prescriptions: No Action Advair HFA 230-21 mcg/actuation HFA aerosol inhaler 2 inhalation INHALATION BID Qty: 12 RF: 3 prednisone 10 mg tablet See Rx Instructions PO DAILY Qty: 18 RF: 0 albuterol sulfate [ProAir HFA] 90 mcg/actuation HFA aerosol inhaler 2 puff INHALATION Q4-6H PRN (Reason: Shortness Of Breath) Qty: 8 RF: 3 Referrals: Padma Domingo ARNP [Primary Care Provider] -
--- NOTE | 2019-12-25 22:39 | DI.RAD.S_ITS ---
PROCEDURE: XR ELBOW LT MIN 3V INDICATIONS: pain after hitting elbow TECHNIQUE: 3 views of the elbow were acquired. COMPARISON: None. FINDINGS: Bones: No fractures or dislocations. No suspicious bony lesions. Soft tissues: No elbow joint effusion. No suspicious soft tissue calcifications. IMPRESSION: No fracture. No osseous lesion. If symptoms and/or clinical suspicion for pathology persists, further assessment with repeat radiographs (7-10 days) or advanced imaging (e.g. CT, MRI or bone scan) may be helpful. Dictated by: Evangelina Stringer MD, PhD on 12/26/2019 at 8:04 Approved by: Evangelina Stringer MD, PhD on 12/26/2019 at 8:04
== END 2019-12-25 23:22 | disposition home or self-care (01) ==
PROVIDERS: Emergency Provider Emergency Medicine; PCP Nurse Practitioner Family
DX: S59.902A Unspecified injury of left elbow, initial encounter (principal); W22.8XXA Striking against or struck by other objects, initial encounter; R20.2 Paresthesia of skin
CPT/HCPCS: 73080; 99281; 99283

== ENCOUNTER → 2020-01-22 09:26 | Outpatient (CLI) | payer OTHER, SELFPAY ==
[2019-12-27 10:08] VITALS: BMI 23.7
[2020-01-22 11:12] LABS: Add Manual Diff / Slide Review NO; Basophils Absolute Auto 0 /uL (0-100); Eosinophils Absolute Auto 200 /uL (0-450); Eosinophils Percent Auto 4.5 % (2-4); Hematocrit 38.4 % (36-46); Hemoglobin 13.1 g/dL (12.0-16.0); Lymphocytes Absolute Auto 2000 /uL (1100-4500); Lymphocytes Percent Auto 40.8 % (25-40); Mean Corpuscular Hemoglobin 30.4 PG (26-34); Mean Corpuscular Volume 89.4 fL (80-100); Monocytes Absolute Auto 300 /uL (0-900); Monocytes Percent Auto 6.4 % (3-14); Neutrophils Absolute Auto 2400 /uL (1500-7000); Neutrophils Percent Auto 47.3 % (50-75); Platelet Count 235 X10^3/uL (150-400); Red Cell Distribution Width 14.2 % (11.6-14.8)
[2020-01-22 11:25] LABS: Alanine Aminotransferase 21 IU/L (<35); Albumin 4.2 g/dL (3.5-5.0); Albumin Globulin Ratio 1.8 (1.0-2.8); Alkaline Phosphatase 45 U/L (38-126); Aspartate Aminotransferase 31 IU/L (14-36); Bilirubin Total 0.8 mg/dL (0.2-1.3); Blood Urea Nitrogen 12 mg/dL (7-17); Carbon Dioxide 27 mmol/L (22-32); Chloride 105 mmol/L (98-107); Cholesterol 161 mg/dL (140-199); Estimated Glomerular Filt Rate > 60.0 mL/min (>60); Globulin 2.3 g/dL (1.7-4.1); Glucose 77 mg/dL (70-100); HDL Cholesterol 47 mg/dL (40-60); HEMOLYSIS < 15 (0-50); LDL Cholesterol Calculated 107 mg/dL (<100); Potassium 3.8 mmol/L (3.4-5.1); Sodium 138 mmol/L (137-145); Total Protein 6.5 g/dL (6.3-8.2); Triglycerides 36 mg/dL (35-150)
[2020-01-22 11:40] LABS: Free T4, Direct Thyroxine 0.97 ng/dL (0.78-2.19)
[2020-01-22 11:54] LABS: Thyroid Stimulating Hormone 0.268 uIU/mL (0.47-4.68)
== END ==
PROVIDERS: PCP Nurse Practitioner Family; Referring Provider Psychiatry & Neurology Psychiatry; Visit Provider Psychiatry & Neurology Psychiatry
DX: F32.9 Major depressive disorder, single episode, unspecified (principal)
CPT/HCPCS: 36415; 80053; 80061; 84439; 84443; 85025

== ENCOUNTER → 2020-02-05 09:46 | Outpatient (CLI) | payer OTHER, SELFPAY ==
[2020-01-23 11:55] VITALS: BMI 23.7
[2020-02-05 12:13] LABS: TSH w/ Reflex to FT4 0.84 uIU/mL (0.47-4.68)
== END ==
PROVIDERS: PCP Nurse Practitioner Family; Referring Provider Nurse Practitioner Family; Visit Provider Nurse Practitioner Family
DX: R79.89 Other specified abnormal findings of blood chemistry (principal)
CPT/HCPCS: 36415; 84443

== ENCOUNTER → 2020-05-14 12:55 | Outpatient (CLI) | payer OTHER, SELFPAY ==
[2020-01-23 11:55] VITALS: BMI 23.7
[2020-05-15 14:25] LABS: COVID19 Sendout Not Detected (Not Detect)
== END ==
PROVIDERS: PCP Nurse Practitioner Family; Visit Provider Nurse Practitioner
DX: Z11.59 Encounter for screening for other viral diseases (principal)
CPT/HCPCS: 87635

== ENCOUNTER 2020-06-04 07:06 | Emergency (ER) | payer OTHER, SELFPAY ==
[2020-01-23 11:55] VITALS: BMI 23.7
[2020-06-04 07:15] VITALS: BP 113/64; PULSE 70; RESP 18; O2SAT 98; BMI 25.4
--- NOTE | 2020-06-04 07:33 | DI.RAD.S_ITS ---
PROCEDURE: XR RIBS RT MIN 3V W CXR 1V INDICATIONS: rib pain TECHNIQUE: 2 views of the right ribs were acquired, along with a single view chest. COMPARISON: [facility], , XR CHEST 2V, 06/27/2019, 11:30. FINDINGS: Surgical changes and devices: None. A radiopaque foreign body overlying the anterior right chest may be located outside of the patient. Bones and chest wall: No acute displaced rib fracture. No suspicious bony lesions. Overlying soft tissues appear unremarkable. Lungs and pleura: No pleural effusions or pneumothorax. Lungs appear clear. Mediastinum: Mediastinal contours appear normal. Heart size is normal. IMPRESSION: No acute displaced rib fracture. No pleural effusion or pneumothorax. Dictated by: Rangel Crooks M.D. on 06/04/2020 at 8:26 Approved by: Rangel Crooks M.D. on 06/04/2020 at 8:30
--- NOTE | 2020-06-04 07:55 | ED.ABDPAIN ---
HPI - Abdominal Pain General Chief Complaint: Back Pain/Injury Stated Complaint: right side rib pain x3 days Time Seen by Provider: 06/04/20 07:12 Source: patient Mode of arrival: Ambulatory Limitations: no limitations History of Present Illness HPI narrative: Patient here for reproducible right lower anterior rib pain. As well as slight right upper quadrant pain. Denies any injury. Started 3 days ago. Worsening with movement. Exacerbated with an event of pulling on her dog. No cough cold congestion. No dyspnea no chest pain. No history of blood clots in legs or lungs. No history of liver disease or surgeries. Vital signs noted. No tachycardia, no tachypnea. No hypoxia. Has history of asthma. Needs refill of her inhaler. Is not on control or hormone replacement. History of hysterectomy. No relief with [id number] medication Location: [facility] Related Data Home Medications Medication Instructions Recorded Confirmed multivitamin 1 tab PO DAILY 01/01/20 04/02/20 Previous Rx's Medication Instructions Recorded fluticasone propionate 230 2 inhalation INHALATION BID #12 10/19/19 mcg-salmeterol 21 mcg/actuation gram HFA inhaler hydroxyzine HCl 25 mg tablet 25 mg PO QID PRN #60 tab 03/11/20 albuterol sulfate 90 mcg/actuation 2 puff INHALATION Q4-6H PRN #8 gram 03/21/20 aerosol inhaler escitalopram oxalate 10 mg tablet 20 mg PO DAILY #60 tab 04/02/20 methylphenidate HCl 10 mg tablet 10 mg PO DAILY #30 tab 04/02/20 albuterol sulfate [ProAir HFA] 2 puff INHALATION Q6H PRN #6.7 gram 06/04/20 Allergies Allergy/AdvReac Type Severity Reaction Status Date / Time No Known Drug Allergies Allergy Verified 04/02/20 16:09 Review of Systems Review of Systems Narrative: GENERAL: Denies chills, fatigue, malaise, fever, sweats. HEENT: Denies sinus pain, ear pain, sore throat, difficulty swallowing RESPIRATORY: Denies dyspnea, cough CARDIOVASCULAR: Denies chest pain, palpitations, edema, GASTROINTESTINAL: Denies nausea, vomiting, complains of abdominal pain, denies diarrhea, constipation, melena. : Denies dysuria, frequency, hematuria MUSCULOSKELETAL: denies muscle complains bony pain SKIN: Denies rash, skin lesions NEUROLOGIC: Denies weakness, headache, numbness, change in speech, confusion PSYCHIATRIC: No SI or HI or hallucinations ROS Unobtainable: All systems reviewed & are unremarkable except as noted in HPI and below Patient History Medical History Acne (Chronic ~1989) ADHD (Chronic ~1996) Allergies (Chronic ~2010) Anxiety (Chronic ~2012) Asthma (Chronic ~2016) Bipolar disorder (manic depression) (Acute) Chronic back pain (Chronic ~2016) Decreased thyroid stimulating hormone (TSH) level (Acute) Depression (Chronic ~1997) Depression (Acute) Fibromyalgia (Chronic ~2017) Painful menstrual periods (Chronic ~2016) complication (Acute ~11/2016) URI (upper respiratory infection) (Acute) Vision disorder (Chronic) Surgical History Anesthesia (Resolved) H/O: hysterectomy (Acute 06/14/19) History of dilatation and curettage (Resolved ~2016) History of surgery (Resolved ~2016) S/P laparoscopic supracervical hysterectomy (Acute) Family History Mother Diabetes mellitus Hypertension Hyperlipidemia Stroke Arthritis Social History household members: spouse and children Smoking Status: Former smoker second hand exposure: No alcohol intake: never substance use type: does not use Smoking Status: Former smoker alcohol intake frequency: 0-2 drinks per day Substance Use Type: marijuana Exam Narrative Exam Narrative: GENERAL: patient appears stated age. Well-nourished, well-developed patient, in no distress, not toxic not dyspneic HEAD: Normocephalic. EYES: Pupils equal round and reactive. No scleral icterus. No injection no discharge, no icterus, ENT: Mucous membranes moist. No drooling no tongue elevation no trismus no malocclusion NECK: Trachea midline. Non tender CARDIOVASCULAR: Regular rate and rhythm without murmurs, gallops, or rubs. RESPIRATORY: Clear to auscultation. Breath sounds equal bilaterally. No wheezes, rales, or rhonchi. GASTROINTESTINAL: Abdomen soft, reproducible right upper quadrant tenderness. Positive Dickerson sign., nondistended. Bowel sounds present no peritoneal signs no rash. Reproducible on light touch of the right lower anterior ribs. No rash. No flail no crepitus. Pain with movement and deep breath at this of rib area EXTREMITIES: No gross deformities. BACK: Nontender without deformity or crepitance. No flank tenderness. NEURO: AOx4. SKIN: Warm and dry, no jaundice PSYCH: Not anxious, is cooperative Initial Vital Signs Initial Vital Signs: Vital Signs Pulse Rate 70 06/04/20 07:15 Respiratory Rate 18 06/04/20 07:15 Blood Pressure 113/64 06/04/20 07:15 Pulse Oximetry 98 06/04/20 07:15 Course Course Course Narrative: Patient proved with Toradol Orders Ordered: Discontinued Medications Sodium Chloride (Normal Saline 0.9%) 500 mls @ 1,000 mls/hr IV BOLUS ONE Stop: 06/04/20 08:23 Last Infusion: 06/04/20 09:07 Dose: 0 mls/hr Documented by: Admin: 06/04/20 08:03 Dose: 1,000 mls/hr Documented by: YUNIOR Ketorolac Tromethamine (Toradol) 30 mg IV NOW ONE Stop: 06/04/20 07:55 Last Admin: 06/04/20 08:01 Dose: 30 mg Documented by: YUNIOR Reevaluation(s) Reevaluation #1: Reviewed labs and imaging with patient. Patient states Toradol helped the pain. Feels much better. Desires discharge home. Reviewed costochondritis with patient Time: 09:08 Vital Signs Vital signs: Vital Signs - 8 hr 06/04/20 07:15 Pulse Rate 70 Respiratory Rate 18 Blood Pressure 113/64 Pulse Oximetry 98 MDM - Abdominal Pain Differential Diagnosis Differential diagnosis: Likely other (Costochondritis/cholecystitis/pleurisy/pneumonia) Lab Data Attestation: I reviewed the patient's lab results. Result diagrams: 06/04/20 08:00 06/04/20 08:00 Labs: Lab Results 06/04/20 06/04/20 Range/Units 08:00 08:00 WBC 7.2 (4.5-11.0) X10^3/uL RBC 4.30 (4.0-5.2) X10^6/uL Hgb 12.6 (12.0-16.0) g/dL Hct 38.6 (36-46) % MCV 89.7 (80-100) fL MCH 29.3 (26-34) PG MCHC 32.6 (30-36) % RDW 14.8 (11.6-14.8) % Plt Count 240 (150-400) X10^3/uL Neut % (Auto) 58.0 (50-75) % Lymph % (Auto) 29.4 (25-40) % Foster % (Auto) 7.0 (3-14) % Eos % (Auto) 5.2 H (2-4) % Baso % (Auto) 0.4 (0-2) % Neut # (Auto) 4200 (2154-9475) /uL Lymph # (Auto) 2100 (6929-2679) /uL Foster # (Auto) 500 (0-900) /uL Eos # (Auto) 400 (0-450) /uL Baso # (Auto) 0 (0-100) /uL Sodium 137 (137-145) mmol/L Potassium 3.9 (3.4-5.1) mmol/L Chloride 107 (98-107) mmol/L Carbon Dioxide 27 (22-32) mmol/L BUN 11 (7-17) mg/dL Creatinine 0.41 L (0.52-1.04) mg/dL Estimated GFR > 60.0 (>60) mL/min BUN/Creatinine Ratio 26.8 H (6-22) Glucose 69 L (70-100) mg/dL Calcium 8.6 (8.4-10.2) mg/dL Total Bilirubin 0.6 (0.2-1.3) mg/dL AST 22 (14-36) IU/L ALT 16 (<35) IU/L Alkaline Phosphatase 62 (38-126) U/L Total Protein 6.0 L (6.3-8.2) g/dL Albumin 3.7 (3.5-5.0) g/dL Globulin 2.3 (1.7-4.1) g/dL Albumin/Globulin Ratio 1.6 (1.0-2.8) Lipase 199 (23-300) U/L Imaging Data Chest x-ray: Radiologist's Impression: [address] [address] XRay Report Signed Patient: DanielAmy BMR#: [id number] : 1985Acct:[id number] Age/Sex: 34 / FDate of Service: 06/04/20 Loc: ED Accession Number: [id number] Procedure: XR ribs RT min 3V w CXR1V Ordering Provider: Micha Carlson MD PROCEDURE: XR RIBS RT MIN 3V W CXR 1V INDICATIONS: rib pain TECHNIQUE: 2 views of the right ribs were acquired, along with a single view chest. COMPARISON: [facility], , XR CHEST 2V, 06/27/2019, 11:30. FINDINGS: Surgical changes and devices: None. A radiopaque foreign body overlying the anterior right chest may be located outside of the patient. Bones and chest wall: No acute displaced rib fracture. No suspicious bony lesions. Overlying soft tissues appear unremarkable. Lungs and pleura: No pleural effusions or pneumothorax. Lungs appear clear. Mediastinum: Mediastinal contours appear normal. Heart size is normal. IMPRESSION: No acute displaced rib fracture. No pleural effusion or pneumothorax. Dictated by: Rangel Crooks M.D. on 06/04/2020 at 8:26 Approved by: Rangel Crooks M.D. on 06/04/2020 at 8:30 MDM Narrative Medical decision making narrative: Appropriate for discharge home. Liver enzymes and blood work reviewed. Low suspicion and low risk factors for pulmonary embolism. No D-dimer indicated this time. Vital signs reviewed. No tachycardia tachypnea hypoxia Discharge Plan Departure Patient Disposition: Home Clinical Impression: Acute costochondritis Discharge Date/Time: 06/04/20 09:16 Instructions: DI for Costochondritis Activity Restrictions/Additional Instructions: No smoking. See family doctor in a week for recheck. May take [id number] ibuprofen for pain. Return if worse or any questions or concerns Inhaler refill has been sent to [facility] [place] Prescriptions: New albuterol sulfate [ProAir HFA] 90 mcg/actuation HFA aerosol inhaler 2 puff INHALATION Q6H PRN (Reason: shortness of breath or wheezing) Qty: 6.7 RF: 0 No Action Advair HFA 230-21 mcg/actuation HFA aerosol inhaler 2 inhalation INHALATION BID Qty: 12 RF: 3 multivitamin Tablet 1 tab PO DAILY RF: 0 hydroxyzine HCl 25 mg tablet 25 mg PO QID PRN (Reason: irritability) Qty: 60 RF: 0 methylphenidate HCl 10 mg tablet 10 mg PO DAILY Qty: 30 RF: 0 escitalopram oxalate [Lexapro] 10 mg tablet 20 mg PO DAILY Qty: 60 RF: 3 albuterol sulfate [ProAir HFA] 90 mcg/actuation HFA aerosol inhaler 2 puff INHALATION Q4-6H PRN (Reason: Shortness Of Breath) Qty: 8 RF: 3 Referrals: Padma Domingo ARNP [Primary Care Provider] -
[2020-06-04] MEDS: KETOROLAC 60 MG/2 ML VIAL 30 MG IV (08:01)
[2020-06-04] MEDS: SODIUM CHLORIDE 0.9% 500 ML 1000 ML IV (08:03)
[2020-06-04 08:12] LABS: Add Manual Diff / Slide Review NO; Basophils Absolute Auto 0 /uL (0-100); Basophils Percent Auto 0.4 % (0-2); Eosinophils Absolute Auto 400 /uL (0-450); Eosinophils Percent Auto 5.2 % (2-4); Hematocrit 38.6 % (36-46); Hemoglobin 12.6 g/dL (12.0-16.0); Lymphocytes Absolute Auto 2100 /uL (1100-4500); Lymphocytes Percent Auto 29.4 % (25-40); Mean Corpuscular HGB Conc 32.6 % (30-36); Mean Corpuscular Hemoglobin 29.3 PG (26-34); Mean Corpuscular Volume 89.7 fL (80-100); Monocytes Absolute Auto 500 /uL (0-900); Neutrophils Absolute Auto 4200 /uL (1500-7000); Platelet Count 240 X10^3/uL (150-400); Red Cell Distribution Width 14.8 % (11.6-14.8); White Blood Cell Count 7.2 X10^3/uL (4.5-11.0)
[2020-06-04 08:29] LABS: Alanine Aminotransferase 16 IU/L (<35); Albumin 3.7 g/dL (3.5-5.0); Albumin Globulin Ratio 1.6 (1.0-2.8); Alkaline Phosphatase 62 U/L (38-126); Aspartate Aminotransferase 22 IU/L (14-36); BUN Creatinine Ratio 26.8 (6-22); Bilirubin Total 0.6 mg/dL (0.2-1.3); Blood Urea Nitrogen 11 mg/dL (7-17); Calcium 8.6 mg/dL (8.4-10.2); Carbon Dioxide 27 mmol/L (22-32); Chloride 107 mmol/L (98-107); Estimated Glomerular Filt Rate > 60.0 mL/min (>60); Globulin 2.3 g/dL (1.7-4.1); Glucose 69 mg/dL (70-100); HEMOLYSIS 18 (0-50); Lipase 199 U/L (23-300); Potassium 3.9 mmol/L (3.4-5.1); Sodium 137 mmol/L (137-145)
[2020-06-04 09:14] VITALS: BP 114/66; PULSE 63; RESP 15; O2SAT 100
== END 2020-06-04 09:16 | disposition home or self-care (01) ==
PROVIDERS: Emergency Provider Emergency Medicine; PCP Nurse Practitioner Family
DX: M94.0 Chondrocostal junction syndrome [Tietze] (principal); R10.11 Right upper quadrant pain
CPT/HCPCS: 36415; 71101; 80053; 83690; 85025; 96361; 96374; 99284; J1885

== ENCOUNTER → 2020-08-19 16:43 | Outpatient (CLI) | payer OTHER, SELFPAY ==
[2020-01-23 11:55] VITALS: BMI 23.7
[2020-08-19 18:10] LABS: BUN Creatinine Ratio 14.3 (6-22); Blood Urea Nitrogen 7 mg/dL (7-17); Calcium 9.3 mg/dL (8.4-10.2); Carbon Dioxide 29 mmol/L (22-32); Chloride 103 mmol/L (98-107); Estimated Glomerular Filt Rate > 60.0 mL/min (>60); Glucose 93 mg/dL (70-100); HEMOLYSIS < 15 (0-50); Potassium 3.1 mmol/L (3.4-5.1); Sodium 137 mmol/L (137-145)
[2020-08-19 18:41] LABS: Thyroid Stimulating Hormone 0.426 uIU/mL (0.47-4.68)
== END ==
PROVIDERS: PCP Nurse Practitioner Family; Referring Provider Nurse Practitioner Family; Visit Provider Nurse Practitioner Family
DX: R79.89 Other specified abnormal findings of blood chemistry (principal)
CPT/HCPCS: 36415; 80048; 84443

== ENCOUNTER → 2020-09-30 18:25 | Outpatient (CLI) | payer OTHER, SELFPAY ==
[2020-01-23 11:55] VITALS: BMI 23.7
--- NOTE | 2020-09-30 18:28 | DI.RAD.S_ITS ---
PROCEDURE: XR KNEE LT 3V INDICATIONS: left knee pain after fall TECHNIQUE: 3 views of the knee were acquired. COMPARISON: None. FINDINGS: Bones: No fractures or dislocations. No suspicious bony lesions. Soft tissues: No joint effusion. No suspicious soft tissue calcifications. IMPRESSION: No trauma found. Dictated by: Daron House M.D. on 10/01/2020 at 8:15 Approved by: Daron House M.D. on 10/01/2020 at 8:16
== END ==
PROVIDERS: PCP Nurse Practitioner Family; Referring Provider Nurse Practitioner Family; Visit Provider Nurse Practitioner Family
DX: M25.562 Pain in left knee (principal)
CPT/HCPCS: 73562

== ENCOUNTER 2021-04-30 09:54 | Emergency (ER) | payer OTHER, SELFPAY ==
[2020-01-23 11:55] VITALS: BMI 23.7
[2021-04-30 10:02] VITALS: BP 136/79; PULSE 66; RESP 16; TEMP 36.7; O2SAT 97; BMI 25.1
--- NOTE | 2021-04-30 10:14 | ED_ITS ---
HPI - URI/Sore Throat General Chief Complaint: Upper Respiratory Symptoms Stated Complaint: Covid Symptoms- Has asthma, hard to breathe Time Seen by Provider: 04/30/21 09:56 History of Present Illness HPI Narrative: 35-year-old female smoker with history of asthma presents with her son and a chief complaint of a few days of generalized headache, runny nose, nasal congestion, cough as well as nausea and vomiting. Patient is vaccinated against COVID. She has been exposed to others with similar symptoms. She is not dizzy nor weak or lightheaded. She is tearful and admittedly worn out and at home without much assistance with her child. She denies any chest pain or significant shortness of breath. She denies any abdominal pain. She has had no diarrhea. She denies any dysuria, frequency or urgency. Injury and has no neck pain. She says her headache has been gradual in onset and generalized in nature. She denies any specific provocation or palliation. She has no neurologic symptoms such as blurred vision, trouble speech or focal findings such as numbness, tingling or weakness Related Data Previous Rx's Medication Instructions Recorded albuterol sulfate 90 mcg/actuation 2 puff INHALATION Q6H PRN #6.7 gram 06/04/20 aerosol inhaler (ProAir HFA) diclofenac sodium 1 % topical gel 2 g TOPICAL QID #100 g 08/20/20 fluticasone propionate 230 2 inh INHALATION BID #12 gram 08/20/20 mcg-salmeterol 21 mcg/actuation HFA inhaler (Advair HFA) albuterol sulfate 90 mcg/actuation 2 puff INHALATION Q4-6H PRN #8 gram 12/22/20 aerosol inhaler (ProAir HFA) escitalopram oxalate 10 mg tablet 20 mg PO DAILY #60 tab 03/02/21 (Lexapro) clonazepam 0.5 mg tablet 0.5 mg PO BID PRN #30 tab 03/09/21 ondansetron 4 mg disintegrating 4 mg PO TID-QID PRN #10 tab 04/30/21 tablet Allergies Allergy/AdvReac Type Severity Reaction Status Date / Time No Known Drug Allergies Allergy Verified 11/05/20 10:18 Review of Systems Review of Systems Narrative: GENERAL: See HPI HEENT: See HPI. RESPIRATORY: See HPI CARDIOVASCULAR: Denies chest pain, palpitations, orthopnea, edema, GASTROINTESTINAL: CH. : Denies dysuria, frequency, incontinence, hematuria, urinary retention. MUSCULOSKELETAL: denies weakness, joint pain, or bony pain SKIN: Denies rash, skin lesions, or other NEUROLOGIC: Denies weakness, headache, numbness, change in speech, confusion, seizures, incoordination. PSYCHIATRIC: No concerning psychosocial issues. 12 point review of systems is negative except for those stated above Patient History Medical History Acne (~1989) ADHD (~1996) Allergies (~2010) Anxiety (~2012) Asthma (~2016) Bipolar disorder (manic depression) Chronic back pain (~2016) Decreased thyroid stimulating hormone (TSH) level Decreased thyroid stimulating hormone (TSH) level Depression (~1997) Depression Fibromyalgia (~2017) Left knee pain Painful menstrual periods (~2016) complication (~11/2016) URI (upper respiratory infection) Vision disorder Surgical History Anesthesia H/O: hysterectomy (06/14/19) History of dilatation and curettage (~2016) History of surgery (~2016) S/P laparoscopic supracervical hysterectomy Family History Mother Diabetes mellitus Hypertension Hyperlipidemia Stroke Arthritis Social History household members: spouse and children Smoking Status: Former smoker second hand exposure: No alcohol intake: never substance use type: does not use Smoking Status: Former smoker alcohol intake frequency: 0-2 drinks per day Substance Use Type: marijuana Exam Narrative Exam Narrative: GENERAL: [35 year old patient appears stated age. Well-developed patient, in mild distress. Tearful, upset, fatigued, anxious HEAD: Atraumatic. Normocephalic. EYES: Pupils equal round and reactive. Extraocular motions intact. No scleral icterus. No injection or drainage. ENT: Moist mucous membranes Nose without bleeding, purulent drainage. Throat without erythema, tonsillar hypertrophy or exudate, though she does have moderate posterior pharyngeal drainage Airway patent. NECK: Trachea midline. Non tender CARDIOVASCULAR: Regular rate and rhythm without murmurs, gallops, or rubs. RESPIRATORY: Clear to auscultation. Breath sounds equal bilaterally. No wheezes, rales, or rhonchi. GASTROINTESTINAL: Abdomen soft, non-tender, nondistended. EXTREMITIES: No edema or joint tenderness. BACK: Nontender without deformity or crepitance. No flank tenderness. NEURO: AOx3. SKIN: No rash or erythema of visible areas Initial Vital Signs Initial Vital Signs: Vital Signs Temperature 98.1 F 04/30/21 10:02 Pulse Rate 66 04/30/21 10:02 Respiratory Rate 16 04/30/21 10:02 Blood Pressure 136/79 04/30/21 10:02 Pulse Oximetry 97 04/30/21 10:02 Course Orders Ordered: ED Orders 04/30/21 10:05 COVID19 -Nasal swab/Pre-Proc Stat Vital Signs Vital signs: Vital Signs - 8 hr 04/30/21 10:02 Temperature 98.1 F Pulse Rate 66 Respiratory Rate 16 Blood Pressure 136/79 Pulse Oximetry 97 MDM - URI/Sore Throat MDM Narrative Medical decision making narrative: Patient with widespread though mild symptoms and very reassuring physical exam. Vital signs are stable. We discussed the utility of large workup including labs an IV and sure the opinion that her biggest concern is of COVID. She shows no signs of respiratory distress and is tolerating orals. Extensive return precautions given and questions answered to her apparent satisfaction Discharge Plan Departure Patient Disposition: Home Clinical Impression: Upper respiratory infection Qualifiers: URI type: unspecified viral URI Qualified Code(s): J06.9 - Acute upper respiratory infection, unspecified Vomiting Qualifiers: Vomiting type: unspecified Vomiting Intractability: non-intractable Nausea presence: with nausea Qualified Code(s): R11.2 - Nausea with vomiting, unspecified Instructions: DI for Viral Syndrome, Nausea and Vomiting-Adult Activity Restrictions/Additional Instructions: *You have been diagnosed with [multiple symptoms likely secondary to viral syndrome. *What to do: *Please continue to take your regular medications as directed. [ x] New medication prescriptions sent to your pharmacy: [ ] [ ] New medication written as a paper prescription [ ] No new medications given *Please follow up with your primary care provider in 2-3 days, call for an appointment. Let them know you were seen in the Emergency Department and that we ask that you be seen in follow up. We will electronically transmit a record of today's note if your PCP is in our system *If you do not have a primary care provider please contact the [facility] Resource line at [phone]. They will ask some questions about your medical history and help get you set up with a doctor in the community. *Return to Emergency Department if you should have any new, worsening or concer juvencio symptoms, such as [fever greater than 101 F, shaking chills, worsening pain, persistent vomiting or other bothersome symptoms] Prescriptions: New ondansetron 4 mg tablet,disintegrating 4 mg PO TID-QID PRN (Reason: nausea and vomiting) Qty: 10 RF: 0 No Action albuterol sulfate [ProAir HFA] 90 mcg/actuation HFA aerosol inhaler 2 puff INHALATION Q4-6H PRN (Reason: Shortness Of Breath) Qty: 8 RF: 3 escitalopram oxalate [Lexapro] 10 mg tablet 20 mg PO DAILY Qty: 60 RF: 3 clonazepam 0.5 mg tablet 0.5 mg PO BID PRN (Reason: severe anxiety) Qty: 30 RF: 0 Advair HFA 230-21 mcg/actuation HFA aerosol inhaler 2 inh INHALATION BID Qty: 12 RF: 3 diclofenac sodium 1 % gel 2 g topical QID Qty: 100 RF: 0 albuterol sulfate [ProAir HFA] 90 mcg/actuation HFA aerosol inhaler 2 puff INHALATION Q6H PRN (Reason: shortness of breath or wheezing) Qty: 6.7 RF: 0 Referrals: Padma Domingo ARNP [Primary Care Provider] -
[2021-04-30 10:44] LABS: COVID19 -Nasal RAPID Negative (Negative)
[2021-04-30 11:01] VITALS: BP 118/63; PULSE 62; RESP 17; O2SAT 99
== END 2021-04-30 11:07 | disposition home or self-care (01) ==
PROVIDERS: Emergency Provider Emergency Medicine; PCP Nurse Practitioner Family
DX: J06.9 Acute upper respiratory infection, unspecified (principal); R11.2 Nausea with vomiting, unspecified; R05 Cough; Z20.822 Contact with and (suspected) exposure to COVID-19
CPT/HCPCS: 87635; 99281; 99282; C9803

== ENCOUNTER 2021-05-06 15:18 | Emergency (ER) | payer OTHER, SELFPAY ==
[2021-05-06 15:23] VITALS: BP 120/76; PULSE 74; RESP 13; TEMP 36.8; O2SAT 99; BMI 24.5
[2021-05-06] MEDS: PROPARACAINE 0.5% OPHTH SOL 1 DROPS EYE-LEFT (15:32)
[2021-05-06] MEDS: FLUORESCEIN 1 MG STRIP EYE-LEFT (15:32)
[2021-05-06] MEDS: TET,DIPH,PERTUSS(ACELL),VAC/PF 0.5 ML SYRINGE IM (15:32)
--- NOTE | 2021-05-06 15:49 | ED.EYEPROB ---
HPI - Eye Problem <ANTHONY Phillips - Last Filed: 05/06/21 16:08> General Chief complaint: Eye Problems Stated complaint: dog scratched left eye Time Seen by Provider: 05/06/21 15:21 Source: patient Mode of arrival: Ambulatory Limitations: no limitations History of Present Illness HPI Narrative: 35-year-old female history of asthma presents to the ED for left eye pain after her dog scratched her eye. She states that her skin bled slightly at first, and then it stopped. She denies any changes to her vision, reports that it feels inflamed and g[place]iola, she does not think that there is anything in her eye. She reports that her top eyelid is painful from the scratch, she denies any eye pain with movement, she reports that it gaxiola when she moves her eye and that hurts. She denies taking any medication for this today, she endorses using marijuana for pain. Related Data Previous Rx's Medication Instructions Recorded albuterol sulfate 90 mcg/actuation 2 puff INHALATION Q6H PRN #6.7 gram 06/04/20 aerosol inhaler (ProAir HFA) diclofenac sodium 1 % topical gel 2 g TOPICAL QID #100 g 08/20/20 fluticasone propionate 230 2 inh INHALATION BID #12 gram 08/20/20 mcg-salmeterol 21 mcg/actuation HFA inhaler (Advair HFA) albuterol sulfate 90 mcg/actuation 2 puff INHALATION Q4-6H PRN #8 gram 12/22/20 aerosol inhaler (ProAir HFA) escitalopram oxalate 10 mg tablet 20 mg PO DAILY #60 tab 03/02/21 (Lexapro) clonazepam 0.5 mg tablet 0.5 mg PO BID PRN #30 tab 03/09/21 ondansetron 4 mg disintegrating 4 mg PO TID-QID PRN #10 tab 04/30/21 tablet Allergies Allergy/AdvReac Type Severity Reaction Status Date / Time No Known Drug Allergies Allergy Verified 05/06/21 10:27 Review of Systems <ANTHONY Phillips - Last Filed: 05/06/21 16:08> Review of Systems Narrative: General: denies fever, chills Head/Neck: denies headache, neck pain Eyes: denies visual changes, denies eye pain, reports left eye gaxiola, and is tearing, no pain with eye movement, top eyelid is painful. Cardio: denies chest pain, palpitations Respiratory: denies shortness of breath, cough GI: denies abdominal pain, nausea, vomiting, or diarrhea : denies dysuria, hematuria MSK: denies joint pain, muscle weakness Skin: denies rash, itching Neuro: denies numbness, tingling Patient History <ANTHONY Phillips - Last Filed: 05/06/21 16:08> Medical History Acne (~1989) ADHD (~1996) Allergies (~2010) Anxiety (~2012) Asthma (~2016) Bipolar disorder (manic depression) Chronic back pain (~2016) Decreased thyroid stimulating hormone (TSH) level Decreased thyroid stimulating hormone (TSH) level Depression (~1997) Depression Fibromyalgia (~2017) Left knee pain Painful menstrual periods (~2016) complication (~11/2016) URI (upper respiratory infection) Vision disorder Surgical History Anesthesia H/O: hysterectomy (06/14/19) History of dilatation and curettage (~2016) History of surgery (~2016) S/P laparoscopic supracervical hysterectomy Family History Mother Diabetes mellitus Hypertension Hyperlipidemia Stroke Arthritis Social History household members: spouse and children Smoking Status: Former smoker second hand exposure: No alcohol intake: never substance use type: does not use Smoking Status: Former smoker alcohol intake frequency: holidays/special occasions only Substance Use Type: marijuana Exam <ANTHONY Phillips - Last Filed: 05/06/21 16:08> Narrative Exam Narrative: Independently reviewed vitals signs and nursing notes. General: Awake, alert, nontoxic, no cardiorespiratory distress Head/Neck: Atraumatic, neck full range of motion Eyes: EOMI without pain conjunctiva normal, small corneal abrasion lateral to pupil on left cornea seen on fluorescein exam. No foreign bodies visualized, no scleral hemorrhage, no retinal hemorrhage visible on funduscopic exam, Nose: nares patent, no rhinorrhea Mouth/Throat: moist mucus membranes Cardio: Regular rate and rhythm, no peripheral edema Respiratory: respirations unlabored without wheezing, stridor, or rales. No retractions. GI: Abdomen nondistended MSK: Moves all extremities, neurovascularly intact Skin: Normal capillary refill, no rash Neuro: Normal speech and cognition, normal gait Initial Vital Signs Initial Vital Signs: Vital Signs Temperature 98.2 F 05/06/21 15:23 Pulse Rate 74 05/06/21 15:23 Respiratory Rate 13 05/06/21 15:23 Blood Pressure 120/76 05/06/21 15:23 Pulse Oximetry 99 05/06/21 15:23 <Leidy Alfaro DO - Last Filed: 05/06/21 19:59> Initial Vital Signs Initial Vital Signs: Vital Signs Temperature 98.2 F 05/06/21 15:23 Pulse Rate 74 05/06/21 15:23 Respiratory Rate 13 05/06/21 15:23 Blood Pressure 120/76 05/06/21 15:23 Pulse Oximetry 99 05/06/21 15:23 Course <ANTHONY Phillips - Last Filed: 05/06/21 16:08> Orders Ordered: Discontinued Medications Acetaminophen (Acetaminophen 325 Mg Tablet) 650 mg PO NOW ONE Stop: 05/06/21 15:43 Last Admin: 05/06/21 15:50 Dose: 650 mg Documented by: ARBEN Diphtheria/Tetanus/Acell Pertussis (Tet,Diph,Pertuss(Acell),Vac/Pf 0.5 Ml Syringe) 0.5 ml IM .ONCE ONE Stop: 05/06/21 15:27 Last Admin: 05/06/21 15:32 Dose: 0.5 ml Documented by: ARBEN Erythromycin (Erythromycin Ophth 1 Gm Oint) 1 applic EYE-LEFT NOW ONE Stop: 05/06/21 15:43 Last Admin: 05/06/21 15:50 Dose: 1 applic Documented by: ARBEN Fluorescein Sodium (Fluorescein 1 Mg Strip) 1 mg EYE-LEFT NOW ONE Stop: 05/06/21 15:27 Last Admin: 05/06/21 15:32 Dose: 1 mg Documented by: ARBEN Fluorescein Sodium (Fluorescein 1 Mg Strip) 1 mg EYE-LEFT NOW ONE Stop: 05/06/21 15:43 Last Admin: 05/06/21 15:52 Dose: Not Given Documented by: ARBEN Ibuprofen (Ibuprofen 400 Mg Tablet) 600 mg PO NOW ONE Stop: 05/06/21 15:43 Last Admin: 05/06/21 15:50 Dose: 600 mg Documented by: ARBEN Proparacaine HCl (Proparacaine 0.5% Ophth Carol) 1 drops EYE-LEFT NOW ONE Stop: 05/06/21 15:27 Last Admin: 05/06/21 15:32 Dose: 1 drop Documented by: ARBEN Vital Signs Vital signs: Vital Signs - 8 hr 05/06/21 15:23 05/06/21 16:01 Temperature 98.2 F Pulse Rate 74 84 Respiratory Rate 13 22 Blood Pressure 120/76 125/80 Pulse Oximetry 99 99 <Leidy Alfaro DO - Last Filed: 05/06/21 19:59> Orders Ordered: Discontinued Medications Acetaminophen (Acetaminophen 325 Mg Tablet) 650 mg PO NOW ONE Stop: 05/06/21 15:43 Last Admin: 05/06/21 15:50 Dose: 650 mg Documented by: ARBEN Diphtheria/Tetanus/Acell Pertussis (Tet,Diph,Pertuss(Acell),Vac/Pf 0.5 Ml Syringe) 0.5 ml IM .ONCE ONE Stop: 05/06/21 15:27 Last Admin: 05/06/21 15:32 Dose: 0.5 ml Documented by: ARBEN Erythromycin (Erythromycin Ophth 1 Gm Oint) 1 applic EYE-LEFT NOW ONE Stop: 05/06/21 15:43 Last Admin: 05/06/21 15:50 Dose: 1 applic Documented by: ARBEN Fluorescein Sodium (Fluorescein 1 Mg Strip) 1 mg EYE-LEFT NOW ONE Stop: 05/06/21 15:27 Last Admin: 05/06/21 15:32 Dose: 1 mg Documented by: ARBEN Fluorescein Sodium (Fluorescein 1 Mg Strip) 1 mg EYE-LEFT NOW ONE Stop: 05/06/21 15:43 Last Admin: 05/06/21 15:52 Dose: Not Given Documented by: ARBEN Ibuprofen (Ibuprofen 400 Mg Tablet) 600 mg PO NOW ONE Stop: 05/06/21 15:43 Last Admin: 05/06/21 15:50 Dose: 600 mg Documented by: ARBEN Proparacaine HCl (Proparacaine 0.5% Ophth Carol) 1 drops EYE-LEFT NOW ONE Stop: 05/06/21 15:27 Last Admin: 05/06/21 15:32 Dose: 1 drop Documented by: ARBEN Vital Signs Vital signs: Vital Signs - 8 hr 05/06/21 15:23 05/06/21 16:01 Temperature 98.2 F Pulse Rate 74 84 Respiratory Rate 13 22 Blood Pressure 120/76 125/80 Pulse Oximetry 99 99 MDM - Eye Problem <Asmita IRIS MccoyP - Last Filed: 05/06/21 16:08> MDM Narrative Medical decision making narrative: 35-year-old female presents to the ED for left eye burning after dog scratched her in the eye at 1:00 p.m. today. On fluorescein exam she has a small left corneal abrasion was visible just lateral to the pupil, without foreign body. There was no subconjunctival hemorrhage, scleral hemorrhage, or retinal hemorrhage on exam. Differential includes retinal detachment, uveitis, globe rupture, although very low concern for these based on history and exam. Patient is appropriate and amenable to discharge home. Vital signs are stable on repeat examination is unremarkable. Patient has been informed of results. Patient has been given strict return to ER precautions for any new or worsening symptoms. Patient understands to follow up closely with outpatient providers as instructed. Patient understands plan and agrees to discharge home. All questions and concerns answered at this time. Discharge Plan Departure Patient Disposition: Home Clinical Impression: Corneal abrasion, left Qualifiers: Encounter type: initial encounter Qualified Code(s): S05.02XA - Injury of conjunctiva and corneal abrasion without foreign body, left eye, initial encounter Instructions: Corneal Abrasion Activity Restrictions/Additional Instructions: *You have been diagnosed with a corneal abrasion of your left. This will most likely get better in the next 24-48 hours with the ointment that I am giving each day. Please a small strip on the inner part of your lower lid every 6 hours, try to limit your eye movement if it is painful. Please return to the emergency department if you develop worsening eye pain, pain with eye movement that is worse, any vision changes, or signs of infection. I wrote you for 2 days off of work, if it is better by then using go back sooner. If this is still bothersome tomorrow please consider following up with ophthalmology as soon as possible, they have fancier tools than we have here in the emergency department. I attached 3 ophthalmologists at the bottom to an [place] and one in [place] feel free to contact any of offices see if they can be helpful. *What to do: *Please continue to take your regular medications as directed. [ ] New medication prescriptions sent to your pharmacy: [ ] [ ] New medication written as a paper prescription [ x] No new medications given *Please follow up with your primary care provider in 2-3 days, call for an appointment. Let them know you were seen in the Emergency Department and that we ask that you be seen in follow up. We will electronically transmit a record of today's note if your PCP is in our system *If you do not have a primary care provider please contact the [facility] line at [phone]. They will ask some questions about your medical history and help get you set up with a doctor in the community. *Return to Emergency Department if you should have any new, worsening or concerning symptoms, such as [fever greater than 101F, chills, worsening pain, persistent vomiting or other bothersome symptoms] Prescriptions: No Action albuterol sulfate [ProAir HFA] 90 mcg/actuation HFA aerosol inhaler 2 puff INHALATION Q4-6H PRN (Reason: Shortness Of Breath) Qty: 8 RF: 3 escitalopram oxalate [Lexapro] 10 mg tablet 20 mg PO DAILY Qty: 60 RF: 3 clonazepam 0.5 mg tablet 0.5 mg PO BID PRN (Reason: severe anxiety) Qty: 30 RF: 0 Advair HFA 230-21 mcg/actuation HFA aerosol inhaler 2 inh INHALATION BID Qty: 12 RF: 3 diclofenac sodium 1 % gel 2 g topical QID Qty: 100 RF: 0 albuterol sulfate [ProAir HFA] 90 mcg/actuation HFA aerosol inhaler 2 puff INHALATION Q6H PRN (Reason: shortness of breath or wheezing) Qty: 6.7 RF: 0 ondansetron 4 mg tablet,disintegrating 4 mg PO TID-QID PRN (Reason: nausea and vomiting) Qty: 10 RF: 0 Referrals: Xi Sanchez MD [Physician] - Padma Dominog ARNP [Primary Care Provider] - Patricio Fang MD [Physician] - Lance Wood MD [Non-Staff] - Stand Alone Forms: Work Release Note <Leidy Alfaro DO - Last Filed: 05/06/21 19:59> Cosign ED Attending Cosignature Attestation: I was immediately available in the department for consultation. Documentation has been reviewed. I agree with assessment and plan.
[2021-05-06] MEDS: ERYTHROMYCIN OPHTH 1 GM OINT 1 APPLIC EYE-LEFT (15:50)
[2021-05-06] MEDS: IBUPROFEN 400 MG TABLET 600 MG PO (15:50)
[2021-05-06] MEDS: ACETAMINOPHEN 325 MG TABLET 650 MG PO (15:50)
[2021-05-06 16:01] VITALS: BP 125/80; PULSE 84; RESP 22; O2SAT 99
== END 2021-05-06 16:03 | disposition home or self-care (01) ==
PROVIDERS: Emergency Provider Nurse Practitioner Critical Care Medicine; PCP Nurse Practitioner Family
DX: S05.02XA Injury of conjunctiva and corneal abrasion without foreign body, left eye, initial encounter (principal); Z23 Encounter for immunization
CPT/HCPCS: 90471; 99283; 90715

== ENCOUNTER → 2021-08-17 11:19 | Outpatient (CLI) | payer OTHER, SELFPAY ==
[2020-01-23 11:55] VITALS: BMI 23.7
== END ==
PROVIDERS: PCP Nurse Practitioner Family; Referring Provider Nurse Practitioner Family; Visit Provider Nurse Practitioner Family
DX: J31.2 Chronic pharyngitis (principal)
CPT/HCPCS: 87070; 87077; 87147

== ENCOUNTER → 2021-11-03 10:20 | Outpatient (CLI) | payer OTHER, SELFPAY ==
[2020-01-23 11:55] VITALS: BMI 23.7
[2021-11-03 12:48] LABS: Hematocrit 38.9 % (36-46); Hemoglobin 13.2 g/dL (12.0-16.0); Mean Corpuscular Hemoglobin 29.6 PG (26-34); Mean Corpuscular Volume 87.3 fL (80-100); Platelet Count 266 X10^3/uL (150-400); Red Blood Cell Count 4.45 X10^6/uL (4.0-5.2); Red Cell Distribution Width 14.9 % (11.6-14.8); White Blood Cell Count 4.8 X10^3/uL (4.5-11.0)
[2021-11-03 13:38] LABS: Alanine Aminotransferase 35 IU/L (<35); Albumin 4.6 g/dL (3.5-5.0); Albumin Globulin Ratio 1.9 (1.0-2.8); Alkaline Phosphatase 76 U/L (38-126); Aspartate Aminotransferase 32 IU/L (14-36); BUN Creatinine Ratio 22.8 (6-22); Bilirubin Total 0.9 mg/dL (0.2-1.3); Blood Urea Nitrogen 13 mg/dL (7-17); Carbon Dioxide 28 mmol/L (22-32); Chloride 102 mmol/L (98-107); Cholesterol 197 mg/dL (140-199); Estimated Glomerular Filt Rate > 60.0 mL/min (>60); Globulin 2.4 g/dL (1.7-4.1); Glucose 82 mg/dL (70-100); HDL Cholesterol 89 mg/dL (40-60); HEMOLYSIS < 15 (0-50); LDL Cholesterol Calculated 100 mg/dL (<100); Potassium 4.3 mmol/L (3.4-5.1); Sodium 137 mmol/L (137-145); Triglycerides 42 mg/dL (35-150)
[2021-11-03 14:07] LABS: TSH w/ Reflex to FT4 1.39 uIU/mL (0.47-4.68)
== END ==
PROVIDERS: PCP Nurse Practitioner Family; Referring Provider Nurse Practitioner Family; Visit Provider Nurse Practitioner Family
DX: Z00.00 Encounter for general adult medical examination without abnormal findings (principal); F31.9 Bipolar disorder, unspecified; F90.2 Attention-deficit hyperactivity disorder, combined type; Z13.6 Encounter for screening for cardiovascular disorders
CPT/HCPCS: 36415; 80053; 80061; 84443; 85027

== ENCOUNTER → 2021-12-02 11:55 | Outpatient (CLI) | payer OTHER, SELFPAY ==
[2020-01-23 11:55] VITALS: BMI 23.7
[2021-12-02 13:41] LABS: COVID19 -Nasal RAPID POSITIVE (Negative)
== END ==
PROVIDERS: PCP Registered Nurse Diabetes Educator; Visit Provider Registered Nurse Diabetes Educator
DX: J02.9 Acute pharyngitis, unspecified (principal); R59.9 Enlarged lymph nodes, unspecified; Z20.818 Contact with and (suspected) exposure to other bacterial communicable diseases; Z20.822 Contact with and (suspected) exposure to COVID-19; R74.8 Abnormal levels of other serum enzymes
CPT/HCPCS: 87070; 87635

== ENCOUNTER → 2022-04-26 14:08 | Outpatient (CLI) | payer OTHER, SELFPAY ==
[2020-01-23 11:55] VITALS: BMI 23.7
== END ==
PROVIDERS: PCP Registered Nurse Diabetes Educator; Visit Provider Nurse Practitioner Family
DX: J02.9 Acute pharyngitis, unspecified (principal)
CPT/HCPCS: 87070

== ENCOUNTER 2022-11-08 19:42 | Emergency (ER) | payer OTHER, SELFPAY ==
[2020-01-23 11:55] VITALS: BMI 23.7
[2022-11-08 20:02] VITALS: BP 139/98; PULSE 81; RESP 19; TEMP 37; O2SAT 99; BMI 26.0
--- NOTE | 2022-11-08 20:11 | DI.RAD.S_ITS ---
PROCEDURE: XR CHEST 2V INDICATIONS: asthma, cough TECHNIQUE: 2 views of the chest were acquired. COMPARISON: CXR 06/04/2020. FINDINGS: Surgical changes and devices: None. Lungs and pleura: Lungs are clear. No pleural effusions or pneumothorax. Mediastinum: Mediastinal contours are normal. Heart size is normal. Bones and chest wall: No suspicious bony abnormalities. Soft tissues appear unremarkable. IMPRESSION: No acute cardiopulmonary abnormality. Dictated by: Ángel Quan M.D. on 11/08/2022 at 21:17 Approved by: Ángel Quan M.D. on 11/08/2022 at 21:18
[2022-11-08 20:57] LABS: Influenza A - CEPHEID Flu A NEGATIVE (NEGATIVE); Influenza B - CEPHEID Flu B NEGATIVE (NEGATIVE); Respiratory Syncytial Virus Negative (Negative)
[2022-11-08 20:58] LABS: COVID-19 CEPHEID 4-PLEX PCR Negative (Negative)
[2022-11-08 21:11] VITALS: PULSE 77
[2022-11-08 21:15] VITALS: BP 123/74; PULSE 80; O2SAT 100
[2022-11-08 21:30] VITALS: BP 124/68; PULSE 70; O2SAT 100
--- NOTE | 2022-11-08 21:46 | ED.GENADULT ---
HPI - General Adult General Chief complaint: Upper Respiratory Symptoms Stated complaint: coughed up bloody mucus/wheezing Time Seen by Provider: 11/08/22 21:41 Source: patient Mode of arrival: Family Vehicle History of Present Illness HPI narrative: 37-year-old female who is here for evaluation of episodes of coughing and wheezing. She states that the last time that she coughed she did have some blood-tinged sputum. Denies any fevers. Stated that over the past several days she has been using her albuterol inhaler at home and she now needs a refill of this medication. She denies any chest pain. No fevers. Related Data Home Medications Medication Instructions Recorded Confirmed hydroxyzine HCl 10 mg tablet 10 mg PO TID PRN 11/03/21 04/26/22 Previous Rx's Medication Instructions Recorded albuterol sulfate 90 mcg/actuation 2 puff inhalation Q6H PRN 06/04/20 aerosol inhaler (ProAir HFA) shortness of breath or wheezing #6.7 grams ondansetron 4 mg disintegrating 4 mg PO TID-QID PRN nausea and 04/30/21 tablet vomiting #10 tabs escitalopram oxalate 20 mg tablet 20 mg PO DAILY #90 tabs 12/17/21 fluticasone propionate 230 See Rx Instructions .Route 01/18/22 mcg-salmeterol 21 mcg/actuation .COMPLEX #12 grams HFA inhaler (Advair HFA) methylphenidate HCl 5 mg tablet 5 mg PO BID #60 tabs 08/30/22 methylphenidate HCl 5 mg tablet 5 mg PO BID #60 tabs 08/30/22 methylphenidate HCl 5 mg tablet 5 mg PO BID #60 tabs 08/30/22 albuterol sulfate 90 mcg/actuation See Rx Instructions .Route 09/13/22 aerosol inhaler .COMPLEX #8.5 grams albuterol sulfate 90 mcg/actuation 2 puff inhalation Q4-6H PRN 11/08/22 aerosol inhaler (Ventolin HFA) shortness of breath or wheezing #8.5 grams Allergies Allergy/AdvReac Type Severity Reaction Status Date / Time No Known Drug Allergies Allergy Verified 11/08/22 20:02 Review of Systems Constitutional Constitutional: Reports system reviewed and no additional complaints, except as documented Respiratory Respiratory: Reports system reviewed and no additional complaints, except as documented Gastrointestinal Gastrointestinal: Reports system reviewed and no additional complaints, except as documented Integumentary/Breasts Skin/Breast: Reports system reviewed and no additional complaints, except as documented Neurologic Neurologic: Reports system reviewed and no additional complaints, except as documented Patient History Medical History Acne (~1989) ADHD (~1996) Allergies (~2010) Anxiety (~2012) Asthma (~2016) Bipolar disorder (manic depression) Chronic back pain (~2016) Decreased thyroid stimulating hormone (TSH) level Decreased thyroid stimulating hormone (TSH) level Depression (~1997) Depression Encounter for wellness examination in adult (11/04/21) Fibromyalgia (~2017) IBS (irritable bowel syndrome) Left knee pain complication (~11/2016) Suicide attempt (09/2021) URI (upper respiratory infection) Vision disorder Surgical History Anesthesia H/O: hysterectomy (06/14/19) History of dilatation and curettage (~2016) History of surgery (~2016) S/P laparoscopic supracervical hysterectomy (06/2019) Family History Mother Diabetes mellitus Hypertension Hyperlipidemia Stroke Arthritis Social History household members: spouse and children Smoking Status: Current every day smoker second hand exposure: No alcohol intake: never substance use type: does not use Smoking Status: Current every day smoker tobacco type: vaping alcohol intake frequency: holidays/special occasions only Substance Use Type: does not use Exam Initial Vital Signs Initial Vital Signs: Vital Signs Temperature 98.6 F 11/08/22 20:02 Pulse Rate 81 11/08/22 20:02 Respiratory Rate 19 11/08/22 20:02 Blood Pressure 139/98 H 11/08/22 20:02 Pulse Oximetry 99 11/08/22 20:02 Oxygen Delivery Method Room Air 11/08/22 20:02 Const General: cooperative, healthy appearing and comfortable HENMT Head: normal to inspection and normocephalic Resp Effort & Inspection: normal respiratory effort Auscultation: clear to auscultation bilaterally Cardio Rate: regular rate Skin General: no rashes or lesions noted Neuro General: patient alert, patient awake and moves all extremities Course Orders Ordered: Discontinued Medications Albuterol (Albuterol 2.5 Mg/3 Ml Neb (Adult)) 2.5 mg INH Q20M BELÉN Stop: 11/08/22 22:41 Last Admin: 11/08/22 22:05 Dose: 2.5 mg Documented By: KENZIE Albuterol (Albuterol Hfa Prepack) 1 box MISC SEEINSTR ONE Stop: 11/08/22 21:47 Last Admin: 11/08/22 21:54 Dose: 1 box Documented By: JAVED Vital Signs Vital signs: Vital Signs - 8 hr 11/08/22 22:05 11/08/22 22:00 11/08/22 22:00 Pulse Rate 71 71 Respiratory Rate 18 Blood Pressure 131/79 Pulse Oximetry 100 100 Oxygen Delivery Method Room Air Oxygen Flow Rate 0 Fraction of Inspired Oxygen 21 Medical Decision Making Lab Data Lab results reviewed: Yes I reviewed the patient's lab results. Labs: Lab Results 11/08/22 Range/Units 20:14 SARS-CoV-2 (PCR) Negative (Negative) Influenza A (RT-PCR) Flu a negative (NEGATIVE) Influenza B (RT-PCR) Flu b negative (NEGATIVE) RSV (PCR) Negative (Negative) Imaging Data Chest x-ray: Radiologist's Impression: PROCEDURE:? XR CHEST 2V ? INDICATIONS:? asthma, cough ? TECHNIQUE:? 2 views of the chest were acquired.? ? COMPARISON:? CXR 06/04/2020. ? FINDINGS:? ? Surgical changes and devices:? None.? ? Lungs and pleura:? Lungs are clear.? No pleural effusions or pneumothorax.? ? Mediastinum:? Mediastinal contours are normal.? Heart size is normal.? ? Bones and chest wall:? No suspicious bony abnormalities.? Soft tissues appear unremarkable.? ? IMPRESSION:? No acute cardiopulmonary abnormality MDM Narrative Medical decision making narrative: Chest x-ray does not show any signs of pneumonia. She did receive 1 nebulizer treatment here for just very slight wheezing and this improved her symptoms. She stated that she does feel better. There is no indication for antibiotics. I did refill her albuterol. She was also given a spacer. I suspect that the blood-tinged sputum his irritation from the coughing. She was given return precautions. She expressed understanding and agreement. Discharge Plan Departure Patient Disposition: Home Clinical Impression: Asthma, Cough Instructions: Cough (Alternative Therapy), Cough Activity Restrictions/Additional Instructions: I recommend that you continue to take all of your medications as directed. Use the inhaler in the spacer as needed and as directed. Contact your primary doctor for follow-up. Return to the emergency department for new symptoms. Prescriptions: New albuterol sulfate [Ventolin HFA] 90 mcg/actuation HFA aerosol inhaler 2 puff inhalation Q4-6H PRN (Reason: shortness of breath or wheezing) Qty: 8.5 0RF No Action methylphenidate HCl 5 mg tablet 5 mg PO BID Qty: 60 0RF methylphenidate HCl 5 mg tablet 5 mg PO BID Qty: 60 0RF methylphenidate HCl 5 mg tablet 5 mg PO BID Qty: 60 0RF escitalopram oxalate 20 mg tablet 20 mg PO DAILY Qty: 90 3RF albuterol sulfate 90 mcg/actuation HFA aerosol inhaler See Rx Instructions .ROUTE .COMPLEX Qty: 8.5 5RF Dose Instruction: inhale 2 puffs by mouth and INTO THE LUNGS every 4 to 6 hours if needed for shortness of breath Rx Instructions: inhale 2 puffs by mouth and INTO THE LUNGS every 4 to 6 hours if needed for shortness of breath Advair HFA 230-21 mcg/actuation HFA aerosol inhaler See Rx Instructions .ROUTE .COMPLEX Qty: 12 5RF Dose Instruction: inhale 2 puffs by mouth twice a day Rx Instructions: inhale 2 puffs by mouth twice a day hydroxyzine HCl 10 mg tablet 10 mg PO TID PRN albuterol sulfate [ProAir HFA] 90 mcg/actuation HFA aerosol inhaler 2 puff INHALATION Q6H PRN (Reason: shortness of breath or wheezing) Qty: 6.7 0RF ondansetron 4 mg tablet,disintegrating 4 mg PO TID-QID PRN (Reason: nausea and vomiting) Qty: 10 0RF Referrals: Toni Gonzalez ARNP [Primary Care Provider] - Stand Alone Forms: Patient Portal/API, Work Release Note
[2022-11-08] MEDS: ALBUTEROL HFA PREPACK 1 BOX MISC (21:54)
[2022-11-08 22:00] VITALS: BP 131/79; PULSE 71; O2SAT 100
[2022-11-08 22:05] VITALS: PULSE 71; RESP 18; O2SAT 100
[2022-11-08] MEDS: ALBUTEROL 2.5 MG/3 ML NEB (ADULT) INH (22:05)
== END 2022-11-08 22:31 | disposition home or self-care (01) ==
PROVIDERS: Emergency Provider Emergency Medicine; PCP Registered Nurse Diabetes Educator
DX: J45.909 Unspecified asthma, uncomplicated (principal); R05.9 Cough, unspecified; Z20.822 Contact with and (suspected) exposure to COVID-19
CPT/HCPCS: 0241U; 71046; 94640; 99283; J7613